=== PATIENT | male | born 2000 | race Caucasian/White ===

== ENCOUNTER 2019-05-13 03:57 | Emergency (ER) | payer OTHER ==
[2019-05-13] MEDS ORDERED: LORazepam 2 MG/ML VIAL ONE ×2 (04:23→04:41)
[2019-05-13] MEDS ORDERED: NA CHLORIDE 0.9% 0 ML ONE (04:24)
[2019-05-13] MEDS ORDERED: NA CHLORIDE 0.9% 1,000 ML ONE (04:24)
[2019-05-13 04:32] LABS: Absolute Lymphocytes (CBC) 3.3 K/uL (0.7-4.9); Basophils % 0.5 % (0-1.3); Hematocrit 51.8 % (39.6-49.0); Lymphocytes % 27.6 % (15.3-44.8); MPV 8.9 fL (7.6-11.3); Monocytes % 11.3 % (3.3-12.3); RBC Red Blood Cell Count 5.84 M/uL (4.33-5.43)
[2019-05-13 04:36] LABS: Protime INR 1.09
[2019-05-13 04:39] LABS: Urine Blood NEGATIVE (NEG); Urine Glucose NEGATIVE (NEG); Urine Protein NEGATIVE (NEG); Urine Specific Gravity 1.015 (1.005-1.030)
[2019-05-13] MEDS ORDERED: Magnesium Sulfate 2gm IVPB 2 G/50 ML BAG IV ONE (04:46)
[2019-05-13 04:47] LABS: Barbiturates NEGATIVE (NEGATIVE); Benzodiazepines NEGATIVE (NEGATIVE); Cocaine NEGATIVE (NEGATIVE); METHAMPHETAM NEGATIVE (NEGATIVE); Methadone NEGATIVE (NEGATIVE); Opiates NEGATIVE (NEGATIVE); Phencyclidine NEGATIVE (NEGATIVE); THC Cannibis POSITIVE (NEGATIVE)
[2019-05-13 04:50] LABS: ALT/SGPT 23 U/L (12-78); AST/SGOT 25 U/L (15-37); Albumin 5.3 g/dL (3.4-5.0); Alkaline Phosphatase 78 U/L (45-117); BUN Blood Urea Nitrogen 12 mg/dL (7-18); Bicarbonate 17 mmol/L (21-32); Bilirubin Total 2.4 mg/dL (0.2-1.0); Glucose Level 103 mg/dL (74-106); Potassium 3.3 mmol/L (3.5-5.1); Protein, Total 9.2 g/dL (6.4-8.2); Sodium Level 146 mmol/L (136-145)
[2019-05-13] MEDS ORDERED: PROPOFOL 1,000 MG/100 ML VIAL IV ONE (05:20)
[2019-05-13] MEDS ORDERED: ROCURONIUM 50 MG/5 ML VIAL IV ONE (05:22)
[2019-05-13] MEDS ORDERED: FENTANYL CITR 100 MCG/2 ML ONE ×2 (05:23→07:01)
[2019-05-13] MEDS ORDERED: ETOMIDATE 20 MG/10 ML VIAL IV ONE (05:23)
--- NOTE | 2019-05-13 05:23 | ER ---
Nurse's Notes [facility] Name: Saqib An Age: 18 yrs Sex: Male : 2000 Arrival Date: 05/13/2019 Time: 03:58 Bed 4 Private MD: Diagnosis: Intentional overdose;Anticholinergic Toxicity - Benadryl;Seizure Presentation: 05/13 04:00 Presenting complaint: Friend states: pt was "joking around" and took too many "sleep bb aides" does not know what they are, pt had seizure during triage lasting approx 10 seconds, O2 applied via NRB at 15 Lpm, Dr Swenson notified and at bedside. Transition of care: patient was not received from another setting of care. Onset of symptoms is unknown. Risk Assessment: Do you want to hurt yourself or someone else? Unable to obtain. Initial Sepsis Screen: Does the patient meet any 2 criteria? No. Patient's initial sepsis screen is negative. Does the patient have a suspected source of infection? No. Patient's initial sepsis screen is negative. Care prior to arrival: None. 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 - Social history:: Smoking status: unknown. - Ebola Screening: : Unable to complete screening because patient is disoriented, . Screenin:49 Abuse screen: Denies threats or abuse. Nutritional screening: No deficits noted. tl2 Tuberculosis screening: No symptoms or risk factors identified. Fall Risk IV access (20 points). Gait- Impaired (20 pts.). Mental Status- Overestimates/Forgets Limitations (15 pts.). Assessment: 03:59 Neuro: Seizure activity noted at this time. Type of seizure: tonic-clonic seizure. ea length of seizure approximately 10 seconds. 04:05 General: Appears in no apparent distress. Behavior is post ictal. Pain: Unable to use ea pain scale. FLACC scale score is 0 out of 10. Neuro: Level of Consciousness is post ictal, Facial symmetry appears normal. Respiratory: Airway is patent Respiratory effort is even, unlabored, Respiratory pattern is symmetrical, tachypnea. Derm: Skin is dry, Skin is pale, Skin temperature is cool. 04:54 Reassessment: Pt is groggy, respirations tachypneic, pt on O2 \\T\\ 2 L per nasal cannula. ea Friends at bedside. 05:04 Reassessment: Poison Control notified spoke to Koko Carrasco with the [place] division bb . 05:05 Reassessment: Dr Swenson at bedside for intubation, Pierre RT and Brien RT at bedside, mallorie Saucedo ED tech at bedside, tam RN and Audelia RN at bedside. RSI meds given see MAR pt intubated with one attempt ETT 7.5, 22 cm at the teeth, color change noted, bilateral breath sounds auscultated, X-ray called for verification of placement. 05:46 Reassessment: Report called to Emerita PEARSON at [facility]. ea 05:49 Reassessment: Pt sedated and intubated, no s/s of pain or discomfort noted at this time.ea 05:56 Reassessment: pt resting quietly, ETT in place, resp assisted, andria breath sounds clear, bb NG tube in place to low intermittent suction, Lewis catheter in place to bedside drain, IV sites intact, patent with fluids infusing no erythema or edema noted. Awaiting EMS for transfer of pt to [facility] for higher level of care. 06:30 Reassessment: Pt resting with eyes closed, ETT in place,respirations assisted, NG tube ea in place to low intermittent suction, Lewis catheter in place to BSD, IV sites intact, patent with fluids infusing, no erythema or edema noted. Awaiting on EMS for transfer to [facility] for Higher level of care. 06:49 Reassessment: Mother at bedside states pt has "temporal lobe seizures" does not take bb any medications, is allergic to tylenol and had ear tubes. 07:04 Reassessment: [facility] at facility for transfer, report given to EMS crew. Pt ea remains sedated. ETT in place, respirations assisted, NG tube in place to low intermittent suction, Lewis catheter in place to BSD, IV site intact, patent with fluids infusing, no erythema or edema noted. Pt taken via stretcher per EMS, no s/s of pain or discomfort noted at this time. Vital Signs: 04:13 BP 162 / 82; Pulse 143; Resp 32 S; Pulse Ox 97% on 15% Non-rebreather mask; Weight 56.7 bb kg (R); Height 5 ft. 8 in. (172.72 cm) (R); 04:34 Temp 98.2(R); ea 04:42 BP 133 / 57; Pulse 126; Resp 22; Pulse Ox 97% on R/A; ea 04:48 BP 133 / 57; Pulse 121; Resp 28; Pulse Ox 98% on 2 lpm NC; tl2 05:00 BP 136 / 7; Pulse 118; Resp 28 S; Temp 98.5(C); Pulse Ox 98% on 2 lpm NC; bb 05:18 BP 152 / 99; Pulse 109; Resp 22; Temp 98.4; Pulse Ox 98% on ETT vent; ea 05:21 BP 134 / 85; Pulse 103; Resp 14 S; Temp 98.3(C); Pulse Ox 98% on 100% FiO2 ETT vent; bb 05:52 BP 144 / 94; Pulse 104; Resp 21 A; Temp 98.2(C); Pulse Ox 98% on 100% FiO2 ETT vent; bb 06:04 BP 140 / 84; Pulse 101; Resp 20; Temp 98.2; Pulse Ox 95% ; ea 06:15 BP 137 / 91; Pulse 102; Resp 18; Pulse Ox 97% on ETT vent; ea 06:45 BP 153 / 98; Pulse 88; Resp 18; Temp 98.3; Pulse Ox 99% on R/A; ea 04:13 Body Mass Index 19.01 (56.70 kg, 172.72 cm) bb ED Course: 03:58 Patient arrived in ED. ds1 03:58 Inserted saline lock: 18 gauge in left antecubital area, using aseptic technique. ea 04:00 Oxygen administration via non-rebreather mask \\T\\ 15L/min. ea 04:03 Juarez Swenson MD is Attending Physician. ps1 04:05 Patient has correct armband on for positive identification. Placed in gown. Bed in low ea position. Call light in reach. Side rails up X2. 04:10 Inserted saline lock: 18 gauge in right antecubital area, using aseptic technique. ea 04:12 Triage completed. bb 04:13 Arm band placed on Patient placed in an exam room, on a stretcher, on court recording monitor, bb on pulse oximetry. 04:40 Lewis cath inserted, using sterile technique, 16 Fr., by vt, balloon inflated, to bb gravity drainage, Patient tolerated well. 04:51 Safety checks: Items removed:. ag4 04:54 Audelia Muniz, RN is Primary Nurse. ea 05:05 Assisted provider with intubation using 7.5 mm ETT via oral route. ET tube secured at bb teeth. Set up intubation tray. Intubated by Juarez Swenson MD Placement verified by CXR, CO2 detector w/ + color change, auscultating bilateral breath sounds, Patient tolerated well. 05:18 NGT: inserted 16 Fr. via right nare. verified placement of air over stomach, verified bb return of gastric contents, Placement verified by X-ray, to intermittent suction. Returned gastric contents. Patient tolerated well. 05:31 XRAY Chest (1 view) In Process Unspecified. EDMS 05:55 Patient transferred, IV remains in place. bb 06:16 Notified ED physician of a critical lab result(s). lactate 2.2 Dr Swenson notified. bb Restraints: 05:18 Non-Violent Restraint: Order obtained. Initiated on May 13, 2019 at 05:18 Unable to ea provide Restraint education. Pt sedated and intubated. Circulation: Within defined parameters (based on Cardiovascular assessment) Skin integrity: Within defined parameters (based on Integumentary assessment) Signs of injury related to restraint: No injuries noted. Restraint status: Soft wrist restraint (Right) Started. Soft wrist restraint (Left) Started. Administered Medications: 04:00 Drug: Ativan 2 mg Route: IVP; Site: left antecubital; ea 04:15 Follow up: Response: No adverse reaction ea 04:10 Drug: Ativan 2 mg Route: IVP; Site: left antecubital; ea 04:15 Follow up: Response: No adverse reaction ea 04:15 Drug: NS 0.9% 1000 ml Route: IV; Rate: 1 bolus; Site: left antecubital; ea 06:12 Follow up: Response: No adverse reaction; IV Status: Completed infusion; IV Intake: ea 1000ml 04:33 CANCELLED (Duplicate Order): NS 0.9% 1000 ml IV at 1 bolus Per protocol; 1000 mL bolus ea 04:33 Drug: Magnesium Sulfate 2 grams Route: IVPB; Infused Over: 2 hrs; Site: left ea antecubital; 04:45 Follow up: IV Status: Completed infusion; IV Intake: 50ml bb 05:28 Follow up: given over 10 minutes per verbal order from Dr Swenson. Order read back and bb verified. 05:10 Drug: Etomidate 20 mg Route: IVP; Site: left antecubital; bb 05:15 Follow up: Response: No adverse reaction ea 05:11 Drug: Rocuronium 50 mg Route: IVP; Site: left antecubital; bb 05:15 Follow up: Response: No adverse reaction ea 05:16 Drug: fentaNYL (PF) 100 mcg {Note: mix in 100 mLs NS 0.9% administer 50 mcg/hr.} Route: bb IVP; Site: left antecubital; 06:50 Follow up: Response: No adverse reaction ea 05:16 Drug: Propofol 5 mcg/kg/min Route: IV; Rate: calculated rate; Site: left antecubital; bb 06:50 Follow up: Response: No adverse reaction; IV Status: Infusion continued upon transfer ea 06:50 Drug: fentaNYL (PF) 100 mcg Route: IVP; Site: right antecubital; ea 07:05 Follow up: Response: No adverse reaction; No adverse reaction, medication continued at ea transfer Intake: 04:45 IV: 50ml; Total: 50ml. bb 06:12 IV: 1000ml; Total: 1050ml. ea Ventilator: 05:21 Fi02: 100%; Rate: 18min; T.V.: 450ml; Peep: 0cm; ET tube: 7.5 mm (Oral); bb Outcome: 05:22 ER care complete, transfer ordered by . ps1 05:49 Instructed on Pt friend verbalized the understanding of need to transfer. ea 07:04 Transferred by ground EMS to [facility], Transfer form completed. ea 07:04 Condition: stable 07:15 Patient left the ED. ea Signatures: Dispatcher [employer] [facility] Bertha Dunaway ds1 Susan Bui RN RN bb Chana Celestin RN RN tl2 Audelia Muniz RN Juarez Patel ea, MD MD ps1 Guzman, Lewis ag4 Corrections: (The following items were deleted from the chart) 04:36 04:08 Inserted saline lock: 18 gauge in left antecubital area, using aseptic technique. ea ea 04:36 04:08 Oxygen administration via non-rebreather mask \\T\\ 15L/min ea ea 05:39 05:16 fentaNYL (PF) 100 mcg IVP in left antecubital bb bb 05:56 04:05 Derm: Skin is diaphoretic, Skin is pale, Skin temperature is cool ea ea 06:47 04:13 Allergies: Unable to obtain; bb bb 06:47 04:13 Home Meds: Unable to obtain; bb bb 06:47 04:13 PMHx: Unable to obtain; bb bb 06:49 04:13 PSHx: Unable to obtain; bb bb
--- NOTE | 2019-05-13 05:23 | EDPHYS ---
Physician Documentation [facility] Name: Saqib An Age: 18 yrs Sex: Male : 2000 Arrival Date: 05/13/2019 Time: 03:58 Bed 4 Private MD: ED Physician Juarez Swenson HPI: 05/13 04:09 This 18 yrs old Male presents to ER via Unassigned with complaints of ps1 Accidental Overdose. 04:09 patient reportedly took multiple sleep aid. Now seizing in ED. No other history. Friend ps1 left to get bottle of pills. . 05:24 reportedly took half of a bottle of 365 caps 25mg benadryl per friend after finding out ps1 his gf was cheating on him with another individual. Went into the bathroom after someone jokingly said to split the bottle and he actually did it. . 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 - Social history:: Smoking status: unknown. - Ebola Screening: : Unable to complete screening because patient is disoriented, . ROS: 04:09 Unable to obtain ROS due to patient seizing and now post ictal. ps1 Exam: 04:09 Head/Face: Normocephalic, atraumatic. ps1 04:09 ENT: Nares patent. No nasal discharge, no septal abnormalities noted. Tympanic membranes are normal and external auditory canals are clear. Oropharynx with no redness, swelling, or masses, exudates, or evidence of obstruction, uvula midline. Mucous membranes moist. Chest/axilla: Normal chest wall appearance and motion. Nontender with no deformity. No lesions are appreciated. 04:09 Eyes: right gaze preference. pinpoint pupils. 04:09 Cardiovascular: Rate: tachycardic, Rhythm: regular, Pulses: no pulse deficits are appreciated. 04:09 Respiratory: sonorous respirations while seizing. 04:09 Abdomen/GI: Inspection: scar(s), are noted in the right upper quadrant, left upper quadrant, right lower quadrant and left lower quadrant, Bowel sounds: normal, Palpation: abdomen is soft and non-tender. 04:12 Neuro: Orientation: unable to test, the patient is post-ictal. ps1 Vital Signs: 04:13 BP 162 / 82; Pulse 143; Resp 32 S; Pulse Ox 97% on 15% Non-rebreather mask; Weight 56.7 bb kg (R); Height 5 ft. 8 in. (172.72 cm) (R); 04:34 Temp 98.2(R); ea 04:42 BP 133 / 57; Pulse 126; Resp 22; Pulse Ox 97% on R/A; ea 04:48 BP 133 / 57; Pulse 121; Resp 28; Pulse Ox 98% on 2 lpm NC; tl2 05:00 BP 136 / 7; Pulse 118; Resp 28 S; Temp 98.5(C); Pulse Ox 98% on 2 lpm NC; bb 05:18 BP 152 / 99; Pulse 109; Resp 22; Temp 98.4; Pulse Ox 98% on ETT vent; ea 05:21 BP 134 / 85; Pulse 103; Resp 14 S; Temp 98.3(C); Pulse Ox 98% on 100% FiO2 ETT vent; bb 05:52 BP 144 / 94; Pulse 104; Resp 21 A; Temp 98.2(C); Pulse Ox 98% on 100% FiO2 ETT vent; bb 06:04 BP 140 / 84; Pulse 101; Resp 20; Temp 98.2; Pulse Ox 95% ; ea 06:15 BP 137 / 91; Pulse 102; Resp 18; Pulse Ox 97% on ETT vent; ea 06:45 BP 153 / 98; Pulse 88; Resp 18; Temp 98.3; Pulse Ox 99% on R/A; ea 04:13 Body Mass Index 19.01 (56.70 kg, 172.72 cm) bb Ventilator: 05:21 Fi02: 100%; Rate: 18min; T.V.: 450ml; Peep: 0cm; ET tube: 7.5 mm (Oral); bb Procedures: 05:15 Intubation: Ventilated with 100% NRB prior to procedure. Intubated orally using # 4 ps1 Mariela blade with 7.5 mm ETT. was successful on first attempt. Ventilated with ventilator. Tube secured with ETT starkey at right side of mouth measured 22 cm at lip. Placement verified by CXR, CO2 detector with (+) color change, auscultating bilateral breath sounds, O2 saturation after procedure was 100 %. Patient tolerated well. MDM: 04:53 Patient medically screened. ps1 05:15 ED course: pt HR 170's seizing, BP 170's systolic. Altered and post ictal. Dry. Appears ps1 to be anticholinergic toxicity. AVR R' notching on EKG. QRS normal. QTc prolonged over 578, gave 2g Mag sulfate. 4mg ativan 2/2 seizure. Pt intubated for airway protection for transfer. 20 etomidate 50 rocuronium 7.5 ETT 22 \T\lips. Post intubation sedation with fentanyl 50 mcg/hr Propofol \T\ 5. Transport stable on vent. AC 450 TV, 0 PEEP. Rate 18. Poison control . 05:23 Data reviewed: vital signs, nurses notes, lab test result(s), EKG, radiologic studies. ps1 05/13 04:09 Order name: Acetaminophen; Complete Time: 04:54 ps1 05/13 04:09 Order name: CBC with Diff; Complete Time: 04:54 ps1 05/13 04:09 Order name: ETOH Level; Complete Time: 04:54 ps1 05/13 04:09 Order name: PT-INR; Complete Time: 04:54 ps1 05/13 04:09 Order name: Salicylate; Complete Time: 04:54 ps1 05/13 04:09 Order name: Urine Drug Screen; Complete Time: 04:54 ps1 05/13 04:09 Order name: CMP; Complete Time: 04:54 ps1 05/13 04:32 Order name: Urine Dipstick--Ancillary (enter results); Complete Time: 04:54 ar5 05/13 04:49 Order name: Lactate; Complete Time: 06:17 ps1 05/13 04:49 Order name: ABG; Complete Time: 05:30 ps1 05/13 05:28 Order name: XRAY Chest (1 view) bb 05/13 04:09 Order name: EKG; Complete Time: 04:10 ps1 05/13 04:09 Order name: EKG - Nurse/Tech; Complete Time: 04:31 ps1 05/13 04:09 Order name: IV Saline Lock; Complete Time: 04:20 ps1 05/13 04:09 Order name: Labs collected and sent; Complete Time: 04:20 ps1 05/13 04:09 Order name: Urine Dipstick-Ancillary (obtain specimen); Complete Time: 04:31 ps1 05/13 06:12 Order name: Restraint:Non-Violent; Complete Time: 06:12 ea Administered Medications: 04:00 Drug: Ativan 2 mg Route: IVP; Site: left antecubital; ea 04:15 Follow up: Response: No adverse reaction ea 04:10 Drug: Ativan 2 mg Route: IVP; Site: left antecubital; ea 04:15 Follow up: Response: No adverse reaction ea 04:15 Drug: NS 0.9% 1000 ml Route: IV; Rate: 1 bolus; Site: left antecubital; ea 06:12 Follow up: Response: No adverse reaction; IV Status: Completed infusion; IV Intake: ea 1000ml 04:33 CANCELLED (Duplicate Order): NS 0.9% 1000 ml IV at 1 bolus Per protocol; 1000 mL bolus ea 04:33 Drug: Magnesium Sulfate 2 grams Route: IVPB; Infused Over: 2 hrs; Site: left ea antecubital; 04:45 Follow up: IV Status: Completed infusion; IV Intake: 50ml bb 05:28 Follow up: given over 10 minutes per verbal order from Dr Swenson. Order read back and bb verified. 05:10 Drug: Etomidate 20 mg Route: IVP; Site: left antecubital; bb 05:15 Follow up: Response: No adverse reaction ea 05:11 Drug: Rocuronium 50 mg Route: IVP; Site: left antecubital; bb 05:15 Follow up: Response: No adverse reaction ea 05:16 Drug: fentaNYL (PF) 100 mcg {Note: mix in 100 mLs NS 0.9% administer 50 mcg/hr.} Route: bb IVP; Site: left antecubital; 06:50 Follow up: Response: No adverse reaction ea 05:16 Drug: Propofol 5 mcg/kg/min Route: IV; Rate: calculated rate; Site: left antecubital; bb 06:50 Follow up: Response: No adverse reaction; IV Status: Infusion continued upon transfer ea 06:50 Drug: fentaNYL (PF) 100 mcg Route: IVP; Site: right antecubital; ea 07:05 Follow up: Response: No adverse reaction; No adverse reaction, medication continued at ea transfer Disposition: 05:26 Chart complete. ps1 Disposition: 07/16/19 05:22 Transfer ordered to [facility]. Diagnosis are Intentional overdose, Anticholinergic Toxicity - Benadryl, Seizure. - Reason for transfer: Higher level of care. - Accepting physician is barbara. - Condition is Critical. - Problem is new. - Symptoms have improved. Critical care time excluding procedures: 05:15 Critical care time: Bedside Care: 45 minutes, Consultation: 10 minutes. Total time: 55 ps1 minutes Signatures: Dispatcher [employer] EDMS uSsan Bui RN RN bb Knox, Taylor, RN RN tl2 Audelia Muniz RN RN ea Singer, Phillip, MD MD ps1 Corrections: (The following items were deleted from the chart) 04:33 04:31 NS 0.9% 1000 ml IV at 1 bolus Per protocol; 1000 mL bolus ordered. tl2 jackie 05:26 04:09 patient reportedly took multiple sleep aid. Now seizing in ED. No other history. ps1 Friend left to get bottle of pills. . ps1 05:59 05:15 ED course: pt HR 170's seizing, BP 170's systolic. Altered and post ictal. Dry. ps1 Appears to be anticholinergic toxicity. AVR R' notching on EKG. QRS normal. QTc prolonged over 578, gave 2g Mag sulfate. 4mg ativan 2/2 seizure. Pt intubated for airway protection for transfer. 20 etomidate 50 rocuronium 7.5 ETT 22 \T\lips. Post intubation sedation with fentanyl 50 mcg/hr Propofol \T\ 5. Transport stable on vent. AC 450 TV, 0 PEEP. Rate 14. . ps1 06:47 04:13 Allergies: Unable to obtain; bb bb 06:47 04:13 Home Meds: Unable to obtain; bb bb 06:47 04:13 PMHx: Unable to obtain; bb bb 06:49 04:13 PSHx: Unable to obtain; bb bb 07:15 05:22 05/13/2019 05:22 Transfer ordered to [facility]. Diagnosis is ea Intentional overdose; Anticholinergic Toxicity - Benadryl; Seizure. Reason for transfer: Higher level of care. Accepting physician is barbara. Condition is Critical. Problem is new. Symptoms have improved. ps1
[2019-05-13] MEDS ORDERED: NA CHLORIDE 0.9% 100 ML IV ONE ×2 (05:27→07:02)
[2019-05-13 05:28] LABS: Blood O2 Saturation 86.4 % (92-98.5)
--- NOTE | 2019-05-13 08:03 | RAD REPORT ---
EXAM DESCRIPTION: RAD - Chest Single View - 05/13/2019 5:35 am CLINICAL HISTORY: Overdose, intubation COMPARISON: None. TECHNIQUE: AP portable chest image was obtained 0530 hours . FINDINGS: Endotracheal tube is in place. Tip is at the T3-4 level 1 centimeter above the aortic arch . This is several cm above the annette. NG tube is in place. Tip is in the proximal stomach. Side port is near the GE junction. Lung ames are clear. Trachea is midline. Heart and vasculature are normal. No measurable pleural ef fusion and no pneumothorax. No acute bony abnormality seen. No acute aortic findings suspected. IMPRESSION: ET tube and NG tube in good position. No acute cardiopulmonary finding.
--- NOTE | 2019-05-13 11:09 | EKG ---
Test Date: 2019-05-13 Test Time: 04:27:41 Performance Improvement Director: LAMONT MEASUREMENT RESULTS: Intervals: Rate: 138 AK: 96 QRSD: 96 QT: 382 QTc: 578 [place]: P: 36 AK: 96 QRS: 65 T: 47 INTERPRETIVE STATEMENTS: Sinus tachycardia with short AK Otherwise normal ECG No previous ECG available for comparison Electronically Signed On 05-13-19 11:07:21 CDT by Bruce Hawkins
== END 2019-05-13 07:15 | disposition short-term general hospital (02) ==
LOC: ER 03:57
PROC: 0BH17EZ Insertion of Endotracheal Airway into Trachea, Via Natural or Artificial Opening (ICD-10-PCS; principal; 2019-05-13)
DX: T45.0X2A Poisoning by antiallergic and antiemetic drugs, intentional self-harm, initial encounter (principal); R56.9 Unspecified convulsions
CPT/HCPCS: 31500; 36415; 51702; 71045; 80053; 80307; 80320; 80329; 81003; 82805; 83605; 85025; 85610; 93005; 94002; 99291; J2704; J3010; J3475; J7030

== ENCOUNTER 2019-08-10 14:41 | Emergency (ER) | payer OTHER ==
[2019-08-10] MEDS ORDERED: dexAMETHasone 4 MG TAB ONE (16:18)
--- NOTE | 2019-08-10 16:18 | EDPHYS ---
Physician Documentation [facility] Name: Saqib An Age: 19 yrs Sex: Male : 2000 Arrival Date: 08/10/2019 Time: 14:44 Bed 11 Private MD: ED Physician James Dominguez Historical: - Allergies: 08/10 14:51 Amoxicillin; iw - Home Meds: 14:51 None [Active]; iw - PMHx: 14:51 Temporal lobe seizures; as a child; iw - PSHx: 14:51 Ear Tubes; iw - Immunization history:: Adult Immunizations not up to date. - Social history:: Smoking status: Patient uses tobacco products, denies chronic smoking, but will smoke occasionally. - Ebola Screening: : Patient negative for fever greater than or equal to 101.5 degrees Fahrenheit, and additional compatible Ebola Virus Disease symptoms Patient denies exposure to infectious person Patient denies travel to an Ebola-affected area in the 21 days before illness onset No symptoms or risks identified at this time. Vital Signs: 14:51 BP 151 / 82; Pulse 83; Resp 16; Temp 98.2; Pulse Ox 97% on R/A; Weight 63.5 kg; Height iw 5 ft. 8 in. (172.72 cm); Pain 0/10; 14:51 Body Mass Index 21.29 (63.50 kg, 172.72 cm) iw MDM: 15:20 Patient medically screened. snw 08/10 15:20 Order name: Flu; Complete Time: 16:11 snw 08/10 15:20 Order name: Strep; Complete Time: 16:11 snw 08/10 16:00 Order name: Throat Culture EDMS Administered Medications: 16:25 Drug: Decadron 8 mg Route: PO; iw 17:00 Follow up: Response: No adverse reaction iw Disposition: 08/10/19 16:18 Discharged to Home. Impression: Acute upper respiratory infection, unspecified. - Condition is Stable. - Discharge Instructions: Upper Respiratory Infection, Adult, Viral Respiratory Infection, Rehydration, Adult. - Prescriptions for Zyrtec 10 mg Oral Tablet - take 1 tablet by ORAL route once daily As needed; 20 tablet. - Medication Reconciliation Form, Thank You Letter, Antibiotic Education, Prescription Opioid Use, Work release form form. - Follow up: Private Physician; When: 2 - 3 days; Reason: Recheck today's complaints, Continuance of care, Re-evaluation by your physician. Follow up: Emergency Department; When: As needed; Reason: Worsening of condition. Signatures: Dispatcher [employer] EDSvetlana Hester, JAMESC BACK TENDER CYLINDER-[facility] Magy Doss RN RN iw Corrections: (The following items were deleted from the chart) 16:25 16:18 08/10/2019 16:18 Discharged to Home. Impression: Acute upper respiratory iw infection, unspecified. Condition is Stable. Forms are Medication Reconciliation Form, Thank You Letter, Antibiotic Education, Prescription Opioid Use. Follow up: Private Physician; When: 2 - 3 days; Reason: Recheck today's complaints, Continuance of care, Re-evaluation by your physician. Follow up: Emergency Department; When: As needed; Reason: Worsening of condition. snw
--- NOTE | 2019-08-10 16:18 | ER ---
Nurse's Notes [facility] Name: Saqib An Age: 19 yrs Sex: Male : 2000 Arrival Date: 08/10/2019 Time: 14:44 Bed 11 Private MD: Diagnosis: Acute upper respiratory infection, unspecified Presentation: 08/10 14:48 Presenting complaint: Patient states: cough for a few days, intermittent sore throat, iw sinus congestion, no fever. Transition of care: patient was not received from another setting of care. Onset of symptoms was August 08, 2019. Risk Assessment: Do you want to hurt yourself or someone else? Patient reports no desire to harm self or others. Initial Sepsis Screen: Does the patient meet any 2 criteria? No. Patient's initial sepsis screen is negative. Does the patient have a suspected source of infection? No. Patient's initial sepsis screen is negative. Care prior to arrival: None. 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 - Social history:: Smoking status: Patient uses tobacco products, denies chronic smoking, but will smoke occasionally. - Ebola Screening: : Patient negative for fever greater than or equal to 101.5 degrees Fahrenheit, and additional compatible Ebola Virus Disease symptoms Patient denies exposure to infectious person Patient denies travel to an Ebola-affected area in the 21 days before illness onset No symptoms or risks identified at this time. Screenin:54 Abuse screen: Denies threats or abuse. Denies injuries from another. Nutritional iw screening: No deficits noted. Tuberculosis screening: No symptoms or risk factors identified. Fall Risk None identified. Assessment: 14:53 General: Appears in no apparent distress. Behavior is calm, cooperative. General: iw Denies fever. Pain: Denies pain. Neuro: Level of Consciousness is awake, alert, obeys commands, Oriented to person, place, time, situation, Moves all extremities. Full function. Cardiovascular: Patient's skin is warm and dry. Respiratory: Reports cough that is non-productive, Respiratory effort is even, unlabored, Respiratory pattern is regular, symmetrical, Breath sounds are clear bilaterally. GI: Abdomen is flat, non-distended. Derm: Skin is intact, is healthy with good turgor. Musculoskeletal: Range of motion: intact in all extremities. Vital Signs: 14:51 BP 151 / 82; Pulse 83; Resp 16; Temp 98.2; Pulse Ox 97% on R/A; Weight 63.5 kg; Height iw 5 ft. 8 in. (172.72 cm); Pain 0/10; 14:51 Body Mass Index 21.29 (63.50 kg, 172.72 cm) iw ED Course: 14:44 Patient arrived in ED. mr 14:46 [facility]vet[facility] Finney [facility]C [facility]. snw 14:46 Jaems Dominguez MD is Attending Physician. snw 14:50 Triage completed. iw 14:51 Arm band placed on. iw 14:52 Magy Doss RN is Primary Nurse. iw 14:53 Patient has correct armband on for positive identification. iw 15:06 No provider procedures requiring assistance completed. Patient did not have IV access iw during this emergency room visit. 15:29 Flu and/or RSV swab sent to lab. Strep swab sent to lab. lt1 15:29 Strep Sent. lt1 15:29 Flu Sent. lt1 Administered Medications: 16:25 Drug: Decadron 8 mg Route: PO; iw 17:00 Follow up: Response: No adverse reaction iw Outcome: 16:18 Discharge ordered by MD. snw 16:24 Discharged to home ambulatory. iw 16:24 Condition: good 16:24 Discharge instructions given to patient, Instructed on discharge instructions, follow up and referral plans. medication usage, Demonstrated understanding of instructions, follow-up care, medications, Prescriptions given X 1. 16:25 Patient left the ED. iw Signatures: Svetlana Finney FNP-C FNP-Jewel LovellaPeggy Magy Doss, MICHEL RN iw Wilma Guzman lt1
[2019-08-10 16:31] VITALS: BP 151/82; TEMP 98.2; O2SAT 97
== END 2019-08-10 16:25 | disposition home or self-care (01) ==
LOC: ER 14:41
DX: J06.9 Acute upper respiratory infection, unspecified (principal); Z88.1 Allergy status to other antibiotic agents; Z72.0 Tobacco use
CPT/HCPCS: 87070; 87081; 87804 ×2; 99283; J8540

== ENCOUNTER 2019-12-21 16:25 | Emergency (ER) | payer OTHER ==
--- OUTSIDE RECORDS SUMMARY | 2019-12-21 16:28 | XMS REPORT ---
:2000 [facility] Address [address] [place] [address] Care Team Providers Name Role Phone MISAEL MERIDA Unavailable Unavailable Problems This patient has no known problems. Allergies, Adverse Reactions, Alerts This patient has no known allergies or adverse reactions. Medications This patient has no known medications. Results Test Description Test Time Test Comments Text Results Atomic Results Result Comments SPUTUM CULTURE + GRAM STAIN 2019-10-14 14:03:00 Test Item Value Reference Range Comments CULTURE (BEAKER) (test STAPHYLOCOCCUS AUREUS 4+ Staphylococcus aureus plgl=2570) Clindamycin (test code=10) Erythromycin (test code=4) Linezolid (test code=40) Nitrofurantoin (test code=23) Oxacillin (test code=14) Rifampin (test code=43) Tetracycline (test code=2) Trimethoprim + Sulfamethoxazole (test code=47) Vancomycin (test code=13) GRAM STAIN RESULT (BEAKER) 1+ White blood cells seen (test aicq=4723) GRAM STAIN RESULT (BEAKER) 0-5 epithelial cells (test wkhh=[id number]) GRAM STAIN RESULT (BEAKER) 3+ gram positive cocci in (test jknl=237336) chains and pairs 4+ Normal respiratory gabrielle presentPOCT-GLUCOSE [id number] 11:34:00 Test Item Value Reference Range Comments POC-GLUCOSE METER (BEAKER) 93 mg/dL 70-110 TESTED AT [facility] [address] [facility] (test lkwb=9422) [facility] [address] POCT-GLUCOSE [id number] 18:22:00 Test Item Value Reference Range Comments POC-GLUCOSE METER (BEAKER) 82 mg/dL 70-110 TESTED AT [facility] [address] [facility] (test rytg=9505) [facility] [address] B-TYPE NATRIURETIC FACTOR (BNP)2019-05-13 13:29:00 Test Item Value Reference Range Comments B-TYPE NATRIURETIC PEPTIDE (BEAKER) (test fsch=429) < pg/mL 0-100 POCT-GLUCOSE [id number] 11:56:00 Test Item Value Reference Range Comments POC-GLUCOSE METER (BEAKER) 77 mg/dL 70-110 TESTED AT [facility] [address] (test wnrq=1700) [place] [address] [id number] 11:55:00 Test Item Value Reference Range Comments MAGNESIUM (BEAKER) (test 2.3 mg/dL 1.6-2.6 Specimen slightly hemolyzed hjee=607) [id number] 11:55:00 Test Item Value Reference Range Comments PHOSPHORUS (BEAKER) (test 3.8 mg/dL 2.3-4.7 Specimen slightly hemolyzed yvcu=991) COMPREHENSIVE METABOLIC [id number] 11:55:00 Test Item Value Reference Range Comments TOTAL PROTEIN (BEAKER) 6.9 gm/dL 6.0-8.3 Specimen slightly (test siqe=704) hemolyzed ALBUMIN (BEAKER) (test 4.2 g/dL 3.5-5.0 Specimen slightly bxmb=7464) hemolyzed ALKALINE PHOSPHATASE 58 U/L 40-150 (BEAKER) (test hcdc=534) BILIRUBIN TOTAL (BEAKER) 2.5 mg/dL 0.2-1.2 Specimen slightly (test bima=634) hemolyzed SODIUM (BEAKER) (test 138 meq/L 136-145 vkqi=464) POTASSIUM (BEAKER) (test 4.0 meq/L 3.5-5.1 Specimen slightly kfdz=686) hemolyzed CHLORIDE (BEAKER) (test 107 meq/L 98-107 lbyt=612) CO2 (BEAKER) (test 23 meq/L 22-29 owpn=075) BLOOD UREA NITROGEN 10 mg/dL 7-21 (BEAKER) (test hpik=606) CREATININE (BEAKER) (test 0.96 mg/dL 0.57-1.25 Specimen slightly vzlc=959) hemolyzed GLUCOSE RANDOM (BEAKER) 80 mg/dL 70-105 (test jsie=928) CALCIUM (BEAKER) (test 9.2 mg/dL 8.4-10.2 zzkr=284) AST (SGOT) (BEAKER) (test 23 U/L 5-34 Specimen slightly qopf=844) hemolyzed ALT (SGPT) (BEAKER) (test 14 U/L 6-55 Specimen slightly qmlg=707) hemolyzed EGFR (BEAKER) (test 101 mL/min/1.73 sq ESTIMATED GFR IS NOT tqlg=4472) m ACCURATE CREATININE CLEARANCE IN PREDICTING GLOMERULAR FILTRATION RATE. ESTIMATED GFR IS NOT APPLICABLE FOR DIALYSIS PATIENTS. Specimen slightly ictericCBC W/PLT COUNT & AUTO [id number] 11:38 :00 Test Item Value Reference Range Comments WHITE BLOOD CELL COUNT (BEAKER) (test gnon=770) 13.8 K/ L 3.5-10.5 RED BLOOD CELL COUNT (BEAKER) (test kysy=919) 4.73 M/ L 4.63-6.08 HEMOGLOBIN (BEAKER) (test mssd=539) 13.0 GM/DL 13.7-17.5 HEMATOCRIT (BEAKER) (test shmy=596) 41.1 % 40.1-51.0 MEAN CORPUSCULAR VOLUME (BEAKER) (test terl=462) 86.9 fL 79.0-92.2 MEAN CORPUSCULAR HEMOGLOBIN (BEAKER) (test 27.5 pg 25.7-32.2 qkkh=151) MEAN CORPUSCULAR HEMOGLOBIN CONC (BEAKER) (test 31.6 GM/DL 32.3-36.5 elkx=847) RED CELL DISTRIBUTION WIDTH (BEAKER) (test 14.4 % 11.6-14.4 uqgz=627) PLATELET COUNT (BEAKER) (test epcr=661) 217 K/CU MM 150-450 MEAN PLATELET VOLUME (BEAKER) (test hjid=869) 9.7 fL 9.4-12.4 NUCLEATED RED BLOOD CELLS (BEAKER) (test 0 /100 WBC 0-0 vasp=732) NEUTROPHILS RELATIVE PERCENT (BEAKER) (test 73 % bqev=489) LYMPHOCYTES RELATIVE PERCENT (BEAKER) (test 14 % ftuw=710) MONOCYTES RELATIVE PERCENT (BEAKER) (test 11 % dquq=532) EOSINOPHILS RELATIVE PERCENT (BEAKER) (test 2 % vjjr=170) BASOPHILS RELATIVE PERCENT (BEAKER) (test 0 % vjdo=608) NEUTROPHILS ABSOLUTE COUNT (BEAKER) (test 10.06 K/ L 1.78-5.38 taqz=302) LYMPHOCYTES ABSOLUTE COUNT (BEAKER) (test 1.97 K/ L 1.32-3.57 vktr=397) MONOCYTES ABSOLUTE COUNT (BEAKER) (test 1.47 K/ L 0.30-0.82 vmgh=920) EOSINOPHILS ABSOLUTE COUNT (BEAKER) (test 0.20 K/ L 0.04-0.54 gsub=443) BASOPHILS ABSOLUTE COUNT (BEAKER) (test 0.05 K/ L 0.01-0.08 fysv=617) IMMATURE GRANULOCYTES-RELATIVE PERCENT (BEAKER) 0 % 0-1 (test ciwl=0141) CREATININE, RANDOM [id number] 10:00:00 Test Item Value Reference Range Comments CREATININE URINE (BEAKER) (test cwey=994) 215.2 mg/dL Reference Range: No NormalsCHLORIDE, RANDOM [id number] 09:57:00 Test Item Value Reference Range Comments CHLORIDE URINE (BEAKER) (test kwol=970) 126 meq/L Reference Range: No NormalsPROTEIN, RANDOM [id number] 09:57:00 Test Item Value Reference Range Comments PROTEIN, URINE (BEAKER) (test qfdp=6317) 14 mg/dL 0-14 SODIUM, RANDOM [id number] 09:57:00 Test Item Value Reference Range Comments SODIUM URINE (BEAKER) (test xqvq=989) 150 meq/L Reference Range: No NormalsRAD, CHEST, 1 VIEW, NON [id number] 09:35: 00Reason for exam:->hypoxemiaShould this be performed at the bedside?-> YesFINAL REPORT Chest one view. Clinical history: hypoxemia Comparison: No priors Discussion: A frontal chest is provided. Cardiomediastinal contours are normal. ET is 5.5 cm above the annette. A feeding tube projects below the diaphragm. There is no consolidation, pulmonary edema, pneumothorax, or significant effusion. Osseous structures appear intact. Signed: Tammy Woodruff MDReportVerified Date/Time: 05/13/2019 09:35:14 Reading Location: [facility] Radiology Reading Room
[2019-12-21] MEDS ORDERED: DERMABOND SKIN ADHESIVE TOP ONE (18:03)
[2019-12-21] MEDS ORDERED: BUPIVACAINE 0.5% PF 10 ML VIAL ONE (18:03)
--- NOTE | 2019-12-22 00:37 | ER ---
Nurse's Notes [facility] Name: Saqib An Age: 19 yrs Sex: Male : 2000 Arrival Date: 12/21/2019 Time: 16:41 Bed 16 Private MD: Diagnosis: Forearm Laceration Presentation: 12/21 16:57 Presenting complaint: Patient states: I was cutting myself and accidentally went to 4 deep. I am not trying to kill myself. I just do this to relieve stress. Transition of care: patient was not received from another setting of care. Onset of symptoms was December 21, 2019. Risk Assessment: Do you want to hurt yourself or someone else? Patient reports no desire to harm self or others. Initial Sepsis Screen: Does the patient meet any 2 criteria? No. Patient's initial sepsis screen is negative. Does the patient have a suspected source of infection? No. Patient's initial sepsis screen is negative. Care prior to arrival: None. 16:57 Method Of Arrival: EMS [facility] 16:57 Acuity: SIERRA 3 ls4 Triage Assessment: 16:41 General: Appears in no apparent distress. Behavior is calm, cooperative, restless. ls4 Pain: Complains of pain in dorsal aspect of left forearm Pain currently is 0 out of 10 on a pain scale. Musculoskeletal: No deficits noted. Injury Description: Laceration. Historical: - Allergies: 17:00 Amoxicillin; ls4 - Home Meds: 17:00 Seroquel Oral [Active]; ls4 - PMHx: 17:00 Temporal lobe seizures; as a child; ls4 - PSHx: 17:00 Ear Tubes; ls4 - Immunization history:: Adult Immunizations up to date, Last tetanus immunization: up to date. - Coronavirus screen:: The patient has NOT traveled to [place] in the past 14 days. Proceed with normal triage process as indicated. - Social history:: Smoking status: Patient denies any tobacco usage or history of. Patient uses alcohol, on a daily basis. - Ebola Screening: : Patient negative for fever greater than or equal to 101.5 degrees Fahrenheit, and additional compatible Ebola Virus Disease symptoms Patient denies exposure to infectious person Patient denies travel to an Ebola-affected area in the 21 days before illness onset No symptoms or risks identified at this time. Screenin:15 Abuse screen: Denies threats or abuse. Nutritional screening: No deficits noted. vc Tuberculosis screening: No symptoms or risk factors identified. Fall Risk None identified. Assessment: 17:30 Reassessment: No changes from previously documented assessment. General: Appears in no vc apparent distress. comfortable, Behavior is calm, cooperative, appropriate for age. Pain: Denies pain. Neuro: Level of Consciousness is awake, alert, obeys commands, Oriented to person, place, time, situation. Cardiovascular: Patient's skin is warm and dry. Respiratory: Airway is patent Respiratory effort is even, unlabored, Respiratory pattern is regular, symmetrical. GI: No signs and/or symptoms were reported involving the gastrointestinal system. : No signs and/or symptoms were reported regarding the genitourinary system. EENT: No signs and/or symptoms were reported regarding the EENT system. Derm: No signs and/or symptoms reported regarding the dermatologic system. Wound noted dorsal aspect of left forearm. Musculoskeletal: Circulation, motion, and sensation intact. Range of motion: intact in all extremities. 18:30 Reassessment: Patient and/or family updated on plan of care and expected duration. Pain vc level reassessed. Patient is alert, oriented x 3, equal unlabored respirations, skin warm/dry/pink. Patient denies pain at this time. 19:00 Reassessment: Patient states he is tired and feels like his sugar is low, snack vc provided. 20:00 Reassessment: Patient and/or family updated on plan of care and expected duration. Pain vc level reassessed. Patient is alert, oriented x 3, equal unlabored respirations, skin warm/dry/pink. Patient denies pain at this time. Vital Signs: 17:07 BP 116 / 66; Pulse 95; Resp 16; Temp 98.6(O); Pulse Ox 99% on R/A; vc 18:30 BP 126 / 78; Pulse 101; Resp 18; Pulse Ox 97% on R/A; vc 19:30 BP 129 / 72; Pulse 99; Resp 15; Pulse Ox 100% on R/A; vc 20:00 BP 118 / 54; Pulse 98; Resp 15; Pulse Ox 100% on R/A; vc ED Course: 16:41 Patient arrived in ED. vc 16:41 Jorge Gordon PA is PHCP. jmm 16:41 Emiliano Albright MD is Attending Physician. [facility] 16:41 Grace Carrizales, RN is Primary Nurse. vc 16:59 Triage completed. ls4 17:30 Arm band placed on. vc 17:30 Patient has correct armband on for positive identification. Placed in gown. Call light vc in reach. Side rails up X 1. 19:21 Assist provider with laceration repair on dorsal aspect of left forearm using vc Dermabond. Set up tray. Performed by Jorge BUSH Patient tolerated well. Patient did not have IV access during this emergency room visit. Administered Medications: 19:18 Drug: Marcaine (0.5 %) 20 ml Volume: 10 ml; Route: Infiltration; vc Outcome: 20:17 Discharge ordered by MD. [facility] 20:18 Condition: good vc 20:45 Patient left the ED. vc 20:45 Discharge instructions given to patient, Instructed on discharge instructions, follow vc up and referral plans. medication usage, wound care, Demonstrated understanding of instructions, follow-up care, medications, wound care, Prescriptions given X 1. 20:45 Discharged to home ambulatory, with family. vc Signatures: Jorge Gordon PA PA jmm Stewart, Lisa, RN RN ls4 Grace Carrizales, RN RN vc
--- NOTE | 2019-12-22 00:37 | EDPHYS ---
Physician Documentation [facility] Name: Saqib An Age: 19 yrs Sex: Male : 2000 Arrival Date: 12/21/2019 Time: 16:41 Bed 16 Private MD: ED Physician Emiliano Albright HPI: 12/21 16:56 This 19 yrs old Male presents to ER via EMS with complaints of Arm Injury. jmm 16:56 The patient or guardian complains of injury, pain. Onset: The symptoms/episode jmm began/occurred acutely, just prior to arrival. This is a 19 year old male that presents to the ED with multiple lacerations to his left arm. Patient denies suicidal ideation. Patient states he has a need to cut himself when his psychiatric medications need to be changed. Patient states he has a follow up with his psychiatrist tomorrow. . Historical: - Allergies: 17:00 Amoxicillin; ls4 - Home Meds: 17:00 Seroquel Oral [Active]; ls4 - PMHx: 17:00 Temporal lobe seizures; as a child; ls4 - PSHx: 17:00 Ear Tubes; ls4 - Immunization history:: Adult Immunizations up to date, Last tetanus immunization: up to date. - Coronavirus screen:: The patient has NOT traveled to [place] in the past 14 days. Proceed with normal triage process as indicated. - Social history:: Smoking status: Patient denies any tobacco usage or history of. Patient uses alcohol, on a daily basis. - Ebola Screening: : Patient negative for fever greater than or equal to 101.5 degrees Fahrenheit, and additional compatible Ebola Virus Disease symptoms Patient denies exposure to infectious person Patient denies travel to an Ebola-affected area in the 21 days before illness onset No symptoms or risks identified at this time. ROS: 16:56 Constitutional: Negative for fever, chills, and weight loss, Cardiovascular: Negative jmm for chest pain, palpitations, and edema, Respiratory: Negative for shortness of breath, cough, wheezing, and pleuritic chest pain. 16:56 MS/extremity: Positive for injury or acute deformity, laceration. 16:56 Skin: Positive for laceration(s). 16:56 All other systems are negative. Exam: 16:56 Constitutional: This is a well developed, well nourished patient who is awake, alert, jmm and in no acute distress. Head/Face: atraumatic. Eyes: EOMI, no conjunctival erythema appreciated ENT: Moist Mucus Membranes Neck: Trachea midline, Supple Chest/axilla: Normal chest wall appearance and motion. Cardiovascular: Regular rate and rhythm. No edema appreciated Respiratory: Normal respirations, no respiratory distress appreciated Abdomen/GI: Non distended, soft Back: Normal ROM 16:56 Skin: multiple lacerations noted to the left forearm, no active bleeding appreciated. 16:56 Neuro: Orientation: is normal, Mentation: is normal, Memory: is normal. 16:56 Psych: Behavior/mood is pleasant, cooperative. Vital Signs: 17:07 BP 116 / 66; Pulse 95; Resp 16; Temp 98.6(O); Pulse Ox 99% on R/A; vc 18:30 BP 126 / 78; Pulse 101; Resp 18; Pulse Ox 97% on R/A; vc 19:30 BP 129 / 72; Pulse 99; Resp 15; Pulse Ox 100% on R/A; vc 20:00 BP 118 / 54; Pulse 98; Resp 15; Pulse Ox 100% on R/A; vc Laceration: 19:15 Wound Repair of 3cm ( 1.2in ) subcutaneous laceration to left arm. Distal jmm neuro/vascular/tendon intact. Anesthesia: Local anesthetic administered with 2 mls of 0.5% marcaine. Wound prep: Extensive cleansing with hibiclenz by me. Skin closed with 5 4-0 Prolene using simple sutures and sterile technique. Patient tolerated well. 19:15 Wound Repair of 1.5cm ( 0.6in ) laceration to left arm. Anesthesia: Local anesthetic jmm administered with 1 mls of 0.5% marcaine. Wound prep: Moderate cleansing with hibiclenz by me. Skin closed with 2 4-0 Prolene using simple sutures and sterile technique. Patient tolerated well. 19:15 Wound Repair of 1cm ( 0.4in ) laceration to left arm. Distal neuro/vascular/tendon jmm intact. Anesthesia: Local anesthetic administered with 1 mls of 0.5% marcaine. Wound prep: Moderate cleansing with hibiclenz by me. Skin closed with 2 4-0 Prolene using simple sutures and sterile technique. Patient tolerated well. 19:15 Wound Repair of 2cm ( 0.8in ) subcutaneous laceration to left arm. Linear shaped.. jmm Distal neuro/vascular/tendon intact. Anesthesia: Local anesthetic administered with 1 mls of 0.5% marcaine. Wound prep: Moderate cleansing with hibiclenz by me. Skin closed with 3 4-0 Prolene using simple sutures and sterile technique. Patient tolerated well. 19:15 Wound Repair of 2.5cm ( 1.0in ) subcutaneous laceration to left arm. Linear shaped.. jmm Distal neuro/vascular/tendon intact. Anesthesia: Local anesthetic administered with 2 mls of 0.5% marcaine. Wound prep: Moderate cleansing with hibiclenz by me. Skin closed with 5 4-0 Prolene using simple sutures and sterile technique. Patient tolerated well. 19:15 Wound Repair of 3cm ( 1.2in ) avulsed laceration to left arm. Linear shaped.. Distal jmm neuro/vascular/tendon intact. Anesthesia: Local anesthetic administered with 2 mls of 0.5% marcaine. Wound prep: Moderate cleansing with hibiclenz by me. Skin closed with 5 4-0 Prolene using simple sutures and sterile technique. Patient tolerated well. 19:15 Wound Repair of 2cm ( 0.8in ) subcutaneous laceration to left arm. Distal jmm neuro/vascular/tendon intact. Anesthesia: Local anesthetic administered with 1% lidocaine. Wound prep: Moderate cleansing with hibiclenz by me. Skin closed with 1-0 Adhesive skin closure using Dermabond. Patient tolerated well. MDM: 16:56 Patient medically screened. [facility] 20:15 Data reviewed: vital signs, nurses notes. Counseling: I had a detailed discussion with maximo the patient and/or guardian regarding: the historical points, exam findings, and any diagnostic results supporting the discharge/admit diagnosis, the need for outpatient follow up, to return to the emergency department if symptoms worsen or persist or if there are any questions or concerns that arise at home. ED course: Patient has no SI or HI. Patient will follow up with psychiatric tomorrow for reevaluation. Patient and family given wound infection return precautions. patient understood and agrees with the plan of care. . 12/21 17:18 Order name: Dermabond; Complete Time: 19:17 [facility] Administered Medications: 19:18 Drug: Marcaine (0.5 %) 20 ml Volume: 10 ml; Route: Infiltration; vc Disposition: 12/21/19 20:17 Discharged to Home. Impression: Forearm Laceration. - Condition is Stable. - Discharge Instructions: Laceration Care, Adult. - Prescriptions for Bactrim DS 800- 160 mg Oral Tablet - take 1 tablet by ORAL route every 12 hours for 7 days; 14 tablet. - Medication Reconciliation Form, Thank You Letter, Antibiotic Education, Prescription Opioid Use form. - Follow up: Private Physician; When: 2 - 3 days; Reason: Recheck today's complaints, Continuance of care, Re-evaluation by your physician. Addendum: 12/23/2019 19:05 Co-signature as Attending Physician, Emiliano Albright MD. r n Signatures: Jorge Gordon PA PA jmm Nieto, Roman, MD MD rn Richelle Wyman RN RN ls4 Grace Carrizales RN RN vc Corrections: (The following items were deleted from the chart) 12/21 20:45 20:17 12/21/2019 20:17 Discharged to Home. Impression: Forearm Laceration. Condition is vc Stable. Forms are Medication Reconciliation Form, Thank You Letter, Antibiotic Education, Prescription Opioid Use. Follow up: Private Physician; When: 2 - 3 days; Reason: Recheck today's complaints, Continuance of care, Re-evaluation by your physician. maximo
[2019-12-22 01:56] VITALS: TEMP 98.6
[2019-12-22 01:59] VITALS: O2SAT 100
[2019-12-22 02:00] VITALS: BP 118/54
== END 2019-12-21 20:45 | disposition home or self-care (01) ==
LOC: ER 16:25
PROC: 0JQH0ZZ Repair Left Lower Arm Subcutaneous Tissue and Fascia, Open Approach (ICD-10-PCS; principal; 2019-12-21)
DX: S51.812A Laceration without foreign body of left forearm, initial encounter (principal); X78.9XXA Intentional self-harm by unspecified sharp object, initial encounter; Y93.9 Activity, unspecified; Y92.9 Unspecified place or not applicable; Z88.1 Allergy status to other antibiotic agents
CPT/HCPCS: 82947; 99284

== ENCOUNTER 2021-01-09 14:41 | Emergency (ER) | payer OTHER ==
--- OUTSIDE RECORDS SUMMARY | 2021-01-09 14:44 | XMS REPORT | Continuity of Care Document ---
:2000 Author Organization [facility] t Address [address] [place] [address] Care Team Providers Name Role Phone Cody GRAMAJO Attending Clinician AAYUSH MERIDA Attending Clinician Unavailable AAYUSH MERIDA Admitting Clinician Unavailable Problems Condition Condition Condition Status Onset Resolution Last Treating Co mments Source Name Details Category Date Date Treatment Clinician Date Substance Substance Disease Active [facility] St abuse [facility] 7[facility]16 [facility] Acute Acute Disease Active [facility] respirator respirator 7-16 Jessy kes - y failure y failure 00:00: Medi deloris with with 00 Center hypoxemia hypoxemia Allergies, Adverse Reactions, Alerts This patient has no known allergies or adverse reactions. Social History Social Habit Start Date Stop Date Quantity Comments Source Sex Assigned At [facility] [place] Medications This patient has no known medications. Procedures This patient has no known procedures. Plan of Care Planned Activity Planned Date Details Comments Source Future Scheduled 2020-06-29 INFLUENZA VACCINE [facility] - Test 00:00:00 (#1) [code = [facility] INFLUENZA VACCINE (#1)] Encounters Start End Encounter Admission Attending Care Care Encounter Source Date/Time Date/Time Type Type Clinicians Facility Department ID 2020-07-01 2020-07-01 Telephone SUAD Ross [id number] 00:00:00 00:00:00 Nelson Chang [id number] [place] [id number] Professio [phone] [place] [address] Building 2020-06-15 2020-06-15 [facility] [id number] 00:00:00 00:00:00 Nelson Simmons [id number] [place] [id number] Professio [phone] [place] [address] Office Building One 2020-04-29 2020-04-29 [facility] [id number] 11:08:32 11:08:49 ne Visit Nelson Chang [id number] [place] [id number] Professio [phone] [address] 2020-01-23 2020-02-26 [facility] [id number] 07:02:54 09:36:58 ne Visit Nelson Chang [id number] [place] [id number] Professio [phone] [address] Results Test Description Test Time Test Comments Results Result Comments Source SPUTUM CULTURE + GRAM STAIN 2019-10-14 14:03:00 Test Item Value Reference Range Interpretation Comme nts CULTURE (BEAKER) (test code = STAPHYLOCOCCUS AUREUS A 4+ Staphylococcus aureus 1095) Clindamycin (test code = 10) R Erythromycin (test code = 4) R Linezolid (test code = 40) S Nitrofurantoin (test code = S 23) Oxacillin (test code = 14) S Rifampin (test code = 43) S Tetracycline (test code = 2) S Trimethoprim + S Sulfamethoxazole (test code = 47) Vancomycin (test code = 13) S GRAM STAIN RESULT (BEAKER) 1+ White blood cells seen (test code = 1123) GRAM STAIN RESULT (BEAKER) 0-5 epithelial cells (test code = 836788) GRAM STAIN RESULT (BEAKER) 3+ gram positive cocci in (test code = 198053) chains and pairs 4+ Normal respiratory gabrielle presentPOCT-GLUCOSE [id number] 11:34:00 Test Item Value Reference Range Interpretation Comments POC-GLUCOSE METER 93 mg/dL 70-110 TESTED AT [place] [address] (BEAKER) (test code = THOR Wright [facility] [address] 1538) POCT-GLUCOSE [id number] 18:22:00 Test Item Value Reference Range Interpretation Comments POC-GLUCOSE METER 82 mg/dL 70-110 TESTED AT [place] [address] [facility] (test code = THOR Wright [facility] [address] 1538) B-TYPE NATRIURETIC FACTOR (BNP)2019-05-13 13:29:00 Test Item Value Reference Range Interpretation Comments B-TYPE NATRIURETIC PEPTIDE (BEAKER) < pg/mL 0-100 (test code = 700) POCT-GLUCOSE [id number] 11:56:00 Test Item Value Reference Range Interpretation Comments POC-GLUCOSE METER 77 mg/dL 70-110 TESTED AT [place] [address] ([facility]) (test code = THOR Wright [facility] [address] 1538) COMPREHENSIVE METABOLIC [id number] 11:55:00 Test Item Value Reference Range Interpretation Comments TOTAL PROTEIN 6.9 gm/dL 6.0-8.3 Specimen sligh tly (BEAKER) (test code = hemoly zed 770) ALBUMIN (BEAKER) 4.2 g/dL 3.5-5.0 Specimen sl ightly (test code = 1145) hemolyzed ALKALINE PHOSPHATASE 58 U/L 40-150 (BEAKER) (test code = 346) BILIRUBIN TOTAL 2.5 mg/dL 0.2-1.2 H Specimen sli ghtly (BEAKER) (test code = hemoly zed 377) SODIUM (BEAKER) (test 138 meq/L 136-145 code = 381) POTASSIUM (BEAKER) 4.0 meq/L 3.5-5.1 Specimen slightly (test code = 379) hemolyzed CHLORIDE (BEAKER) 107 meq/L 98-107 (test code = 382) CO2 (BEAKER) (test 23 meq/L 22-29 code = 355) BLOOD UREA NITROGEN 10 mg/dL 7-21 (BEAKER) (test code = 354) CREATININE (BEAKER) 0.96 mg/dL 0.57-1.25 Specimen slightly (test code = 358) hemolyzed GLUCOSE RANDOM 80 mg/dL 70-105 (BEAKER) (test code = 652) CALCIUM (BEAKER) 9.2 mg/dL 8.4-10.2 (test code = 697) AST (SGOT) (BEAKER) 23 U/L 5-34 Specimen slightly (test code = 353) hemolyzed ALT (SGPT) (BEAKER) 14 U/L 6-55 Specimen slightly (test code = 347) hemolyzed EGFR (BEAKER) (test 101 ESTIMATE D GFR IS code = 1092) mL/min/1.73 sq NOT ACCURA TE m CREATININE CLEARANCE IN PREDICTING GLOMERULAR FILTRATION RATE . ESTIMATED GFR I S NOT APPLICABLE FOR DIALYSIS PATIEN TS. Specimen slightly [id number] 11:55:00 Test Item Value Reference Range Interpretation Comments MAGNESIUM (BEAKER) 2.3 mg/dL 1.6-2.6 Specimen slightly (test code = 627) hemolyzed [id number] 11:55:00 Test Item Value Reference Range Interpretation Comments PHOSPHORUS (BEAKER) 3.8 mg/dL 2.3-4.7 Specimen slightly (test code = 604) hemolyzed CBC W/PLT COUNT & AUTO [id number] 11:38:00 Test Item Value Reference Range Interpretation Comments WHITE BLOOD CELL COUNT (BEAKER) 13.8 K/ L 3.5-10.5 H (test code = 775) RED BLOOD CELL COUNT (BEAKER) 4.73 M/ L 4.63-6.08 (test code = 761) HEMOGLOBIN (BEAKER) (test code = 13.0 GM/DL 13.7-17.5 L 410) HEMATOCRIT (BEAKER) (test code = 41.1 % 40.1-51.0 411) MEAN CORPUSCULAR VOLUME (BEAKER) 86.9 fL 79.0-92.2 (test code = 753) MEAN CORPUSCULAR HEMOGLOBIN 27.5 pg 25.7-32.2 (BEAKER) (test code = 751) MEAN CORPUSCULAR HEMOGLOBIN CONC 31.6 GM/DL 32.3-36.5 L (BEAKER) (test code = 752) RED CELL DISTRIBUTION WIDTH 14.4 % 11.6-14.4 (BEAKER) (test code = 412) PLATELET COUNT (BEAKER) (test 217 K/CU MM 150-450 code = 756) MEAN PLATELET VOLUME (BEAKER) 9.7 fL 9.4-12.4 (test code = 754) NUCLEATED RED BLOOD CELLS 0 /100 WBC 0-0 (BEAKER) (test code = 413) NEUTROPHILS RELATIVE PERCENT 73 % (BEAKER) (test code = 429) LYMPHOCYTES RELATIVE PERCENT 14 % (BEAKER) (test code = 430) MONOCYTES RELATIVE PERCENT 11 % (BEAKER) (test code = 431) EOSINOPHILS RELATIVE PERCENT 2 % (BEAKER) (test code = 432) BASOPHILS RELATIVE PERCENT 0 % (BEAKER) (test code = 437) NEUTROPHILS ABSOLUTE COUNT 10.06 K/ L 1.78-5.38 H (BEAKER) (test code = 670) LYMPHOCYTES ABSOLUTE COUNT 1.97 K/ L 1.32-3.57 (BEAKER) (test code = 414) MONOCYTES ABSOLUTE COUNT (BEAKER) 1.47 K/ L 0.30-0.82 H (test code = 415) EOSINOPHILS ABSOLUTE COUNT 0.20 K/ L 0.04-0.54 (BEAKER) (test code = 416) BASOPHILS ABSOLUTE COUNT (BEAKER) 0.05 K/ L 0.01-0.08 (test code = 417) IMMATURE GRANULOCYTES-RELATIVE 0 % 0-1 PERCENT (BEAKER) (test code = 2801) CREATININE, RANDOM [id number] 10:00:00 Test Item Value Reference Range Interpretation Comments CREATININE URINE (BEAKER) (test 215.2 mg/dL code = 375) Reference Range: No NormalsCHLORIDE, RANDOM [id number] 09:57:00 Test Item Value Reference Range Interpretation Comments CHLORIDE URINE (BEAKER) (test code 126 meq/L = 682) Reference Range: No NormalsPROTEIN, RANDOM [id number] 09:57:00 Test Item Value Reference Range Interpretation Comments PROTEIN, URINE (BEAKER) (test code = 14 mg/dL 0-14 1569) SODIUM, RANDOM [id number] 09:57:00 Test Item Value Reference Range Interpretation Comments SODIUM URINE (BEAKER) (test code = 150 meq/L 243) Reference Range: No NormalsRAD, CHEST, 1 VIEW, NON [id number] 09:35:00Reason for exam:->hypoxemiaShould this be performed at the bedside?->YesFINAL REPORT Chest one view. Clinical history: hypoxemia Comparison: No priors Discussion: A frontal chest is provided. Cardiomediastinal contours are normal. ET is 5.5 cm above the annette. A feeding tube projects below the diaphragm. There is no consolidation, pulmonary edema, pneumothorax, or significant effusion. Osseous structures appear intact. Signed: Tammy Woodruff MDReportVerified Date/Time: 05/13/2019 09:35:14 Reading Location: [facility] Radiology Reading Room
--- NOTE | 2021-01-09 16:18 | RAD REPORT ---
EXAM DESCRIPTION: RAD - Chest Pa And Lat (2 Views) - 01/09/2021 3:17 pm CLINICAL HISTORY: COUGH COMPARISON: Portable April 2019 TECHNIQUE: Frontal and lateral views of the chest were obtained. FINDINGS: The lungs are clear. Heart size is normal and central vasculature is within normal limit s. No pleural effusion or pneumothorax seen. No acute bony finding noted. No aortic abnormality. No significant interval changes. IMPRESSION: No acute cardiopulmonary process.
[2021-01-09 16:25] LABS: SARS-COV-2 RT PCR NEGATIVE (NEGATIVE)
[2021-01-09] MEDS ORDERED: NA CHLORIDE 0.9% 1,000 ML ONE (17:31)
[2021-01-09 18:06] LABS: Absolute Lymphocytes (CBC) 1.9 K/uL (0.7-4.9); Basophils % 0.6 % (0-1.3); Hematocrit 40.2 % (39.6-49.0); Lymphocytes % 25.1 % (15.3-44.8); MPV 8.1 fL (7.6-11.3); RBC Red Blood Cell Count 4.59 M/uL (4.33-5.43)
[2021-01-09 18:31] LABS: BUN Blood Urea Nitrogen 19 mg/dL (7-18); Bicarbonate 26 mmol/L (21-32); Glucose Level 103 mg/dL (74-106); Potassium 3.8 mmol/L (3.5-5.1); Sodium Level 141 mmol/L (136-145)
--- NOTE | 2021-01-09 18:35 | ER ---
Nurse's Notes [facility] Name: Saqib An Age: 20 yrs Sex: Male : 2000 Arrival Date: 01/09/2021 Time: 14:47 Bed 19 Private MD: Diagnosis: Diarrhea, unspecified;Cough Presentation: 01/09 14:52 Chief complaint: Patient states: Slight cough, abd pain with diarrhea, [place], slight ll1 decreased smell for 4 days. Pain to L chest with coughing. Coronavirus screen: Client denies travel out of the [place] in the last 14 days. cough unrelated to allergies, diarrhea, fatigue, headache, loss of taste or smell, Client presents with at least one sign or symptom that may indicate coronavirus-19. Standard/surgical mask placed on the client. Ebola Screen: Patient denies travel to an Ebola-affected area in the 21 days before illness onset. Initial Sepsis Screen: Does the patient meet any 2 criteria? No. Patient's initial sepsis screen is negative. Does the patient have a suspected source of infection? Yes: Productive cough/pneumonia. Risk Assessment: Do you want to hurt yourself or someone else? Patient reports no desire to harm self or others. Onset of symptoms was January 05, 2021. 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 - Social history:: Smoking status: Patient reports the use of cigarette tobacco products, denies chronic smoking, but will smoke occasionally. Screenin:20 Abuse screen: Denies threats or abuse. Nutritional screening: No deficits noted. bw Tuberculosis screening: No symptoms or risk factors identified. Fall Risk None identified. Assessment: 17:20 Pain: Complains of pain in abd pain Pain does not radiate. Pain began 3 hours ago. bw Cardiovascular: No deficits noted. Reports chest pain. 17:28 Reassessment: Patient appears in no apparent distress at this time. Patient and/or bw family updated on plan of care and expected duration. Pain level reassessed. Patient is alert, oriented x 3, equal unlabored respirations, skin warm/dry/pink. Vital Signs: 14:52 BP 127 / 80; Pulse 81; Resp 17; Temp 98.2; Pulse Ox 97% ; Height 5 ft. 9 in. (175.26 ll1 cm); Pain 9/10; 17:20 BP 123 / 99; Pulse 74; Resp 18; Pulse Ox 98% ; bw ED Course: 14:47 Patient arrived in ED. mr 14:52 Arm band placed on. ll1 14:55 Triage completed. ll1 15:01 Mona Diallo FNP-C is [facility]. kb 15:01 Matthieu Blanchard MD is Attending Physician. kb 15:16 Chest Pa And Lat (2 Views) XRAY In Process Unspecified. EDDE 16:47 Lelia Sethi, MICHEL is Primary Nurse. bw 17:05 Initial lab(s) drawn, by wv, sent to lab. Inserted saline lock: 20 gauge in right [facility] antecubital area, using aseptic technique. Blood collected. 17:06 Patient has correct armband on for positive identification. Bed in low position. Call [facility] light in reach. Side rails up X 1. Warm blanket given. Pulse ox on. NIBP on. 17:08 [place] Screen Profile Sent. [facility] 17:08 Basic Metabolic Panel Sent. [facility] 17:08 CBC with Diff Sent. [facility] 17:20 No provider procedures requiring assistance completed. Patient maintains SpO2 bw saturation greater than 95% on room air. 19:00 Patient did not have IV access during this emergency room visit. IV discontinued, [facility] Pressure dressing applied. Inserted. Administered Medications: 17:20 Drug: NS 0.9% 1000 ml Route: IV; Rate: 1000 ml; Site: right antecubital; bw Outcome: 18:34 Discharge ordered by . kb 19:03 Patient left the ED. Signatures: Dispatcher [employer] EDDE Mona Diallo FNP-C FNP-Ckb Peggy Gregory, Aleida [facility] Briana Terry, RN RN 1 Lelia Sethi RN RN
--- NOTE | 2021-01-09 18:35 | EDPHYS ---
Physician Documentation [facility] Name: Saqib An Age: 20 yrs Sex: Male : 2000 Arrival Date: 01/09/2021 Time: 14:47 Bed 19 Private MD: ED Physician Matthieu Blanchard HPI: 01/09 17:02 This 20 yrs old Male presents to ER via Ambulatory with complaints of Cough, kb Chest Pain, Abdominal Pain, Headache. 17:02 The patient or guardian reports cough, that is intermittent, described as mild, kb difficulty breathing. Modifying factors: The symptoms are alleviated by nothing, the symptoms are aggravated by nothing. Associated signs and symptoms: Pertinent positives: chest pain, diarrhea. The patient has not experienced similar symptoms in the past. The patient has not recently seen a physician. 17:02 Onset: The symptoms/episode began/occurred 4 day(s) ago. Severity of symptoms: At their kb worst the symptoms were moderate, in the emergency department the symptoms are unchanged. 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 - Social history:: Smoking status: Patient reports the use of cigarette tobacco products, denies chronic smoking, but will smoke occasionally. ROS: 16:56 Constitutional: Negative for fever, chills, and weight loss, MS/Extremity: Negative for kb injury and deformity, Skin: Negative for injury, rash, and discoloration. 16:56 Constitutional: Positive for fatigue. 16:56 Cardiovascular: Positive for chest pain, with cough. 16:56 Respiratory: Positive for cough, shortness of breath. 16:56 Abdomen/GI: Positive for abdominal pain, diarrhea. 16:56 Neuro: Positive for headache. Exam: 17:02 Constitutional: This is a well developed, well nourished patient who is awake, alert, kb and in no acute distress. Head/Face: Normocephalic, atraumatic. Chest/axilla: Normal chest wall appearance and motion. Cardiovascular: Regular rate and rhythm with a normal S1 and S2. No gallops, murmurs, or rubs. No pulse deficits. Respiratory: Lungs have equal breath sounds bilaterally, clear to auscultation. No rales, rhonchi or wheezes noted. No increased work of breathing, no retractions or nasal flaring. Abdomen/GI: Soft, non-tender, with normal bowel sounds. No distension. No guarding or rebound. No evidence of tenderness throughout. Skin: Warm, dry with normal turgor. Normal color with no rashes, no lesions, and no evidence of cellulitis. MS/ Extremity: Pulses equal, no cyanosis. Neurovascular intact. Full, normal range of motion. Neuro: Awake and alert, GCS 15, oriented to person, place, time, and situation. Cranial nerves II-XII grossly intact. Moves all extremities. Sensory grossly intact. Cerebellar exam normal. Normal gait. Vital Signs: 14:52 BP 127 / 80; Pulse 81; Resp 17; Temp 98.2; Pulse Ox 97% ; Height 5 ft. 9 in. (175.26 ll1 cm); Pain 9/10; 17:20 BP 123 / 99; Pulse 74; Resp 18; Pulse Ox 98% ; bw MDM: 15:58 Patient medically screened. sol 16:55 Data reviewed: vital signs, nurses notes. Data interpreted: Pulse oximetry: on room air kb is 97 %. Interpretation: normal. 18:33 Counseling: I had a detailed discussion with the patient and/or guardian regarding: the kb historical points, exam findings, and any diagnostic results supporting the discharge/admit diagnosis, lab results, radiology results, the need for outpatient follow up, a family practitioner, to return to the emergency department if symptoms worsen or persist or if there are any questions or concerns that arise at home. 01/09 16:25 Order name: COVID-19/FLU A+B; Complete Time: 16:32 EDMS 01/09 16:33 Order name: CBC with Diff; Complete Time: 18:10 kb 01/09 16:33 Order name: Basic Metabolic Panel; Complete Time: 18:33 kb 01/09 16:33 Order name: [place] Screen Profile; Complete Time: 17:49 kb 01/09 15:01 Order name: Chest Pa And Lat (2 Views) XRAY; Complete Time: 16:32 kb 01/09 16:33 Order name: IV Start; Complete Time: 17:10 kb Administered Medications: 17:20 Drug: NS 0.9% 1000 ml Route: IV; Rate: 1000 ml; Site: right antecubital; bw Disposition: 01/10 06:54 Co-signature as Attending Physician, Matthieu Blanchard MD I agree with the assessment and sol plan of care. Disposition: 01/09/21 18:34 Discharged to Home. Impression: Diarrhea, unspecified, Cough. - Condition is Stable. - Discharge Instructions: Food Choices to Help Relieve Diarrhea, Adult, Diarrhea, Adult, [id number], Cough, Adult, Itei-bk-Rnzk, Viral Respiratory Infection, Foxl-Bj-Jknr. - Work release form, Medication Reconciliation Form, Thank You Letter, Antibiotic Education, Prescription Opioid Use form. - Follow up: Emergency Department; When: As needed; Reason: Worsening of condition. Follow up: Private Physician; When: 2 - 3 days; Reason: Recheck today's complaints, Continuance of care, Re-evaluation by your physician. Signatures: Dispatcher [employer] [facility] Mona Diallo, MANAGER HOSPITALITY-C MANAGER HOSPITALITY-Matthieu Wick MD MD cha Lewis, Lynsay, RN RN [address] Boyd StreetLelia salinas RN RN Corrections: (The following items were deleted from the chart) 01/09 15:46 15:01 CORONAVIRUS+MR.LAB.BRZ ordered. [facility] 15:46 15:01 Influenza Screen (A \T\ B)+BA.LAB.BRZ ordered. [facility] 19:03 18:34 01/09/2021 18:34 Discharged to Home. Impression: Diarrhea, unspecified; Cough. bw Condition is Stable. Forms are Medication Reconciliation Form, Thank You Letter, Antibiotic Education, Prescription Opioid Use. Follow up: Emergency Department; When: As needed; Reason: Worsening of condition. Follow up: Private Physician; When: 2 - 3 days; Reason: Recheck today's complaints, Continuance of care, Re-evaluation by your physician. kb
[2021-01-10 15:29] VITALS: TEMP 98.2
[2021-01-10 15:30] VITALS: BP 123/99; O2SAT 98
== END 2021-01-09 19:03 | disposition home or self-care (01) ==
LOC: ER 14:41
DX: R19.7 Diarrhea, unspecified (principal); F17.210 Nicotine dependence, cigarettes, uncomplicated; Z20.822 Contact with and (suspected) exposure to COVID-19; Z88.1 Allergy status to other antibiotic agents
CPT/HCPCS: 85025; 80048; 36415; 86308; 0240U; 71046; J7030; 99284

== ENCOUNTER 2022-01-14 06:57 | Emergency (ER) | payer OTHER ==
--- OUTSIDE RECORDS SUMMARY | 2022-01-14 07:01 | XMS REPORT | Continuity of Care Document ---
:2000 Author Organization [facility] t Address [address] [place] [address] Care Team Providers Name Role Phone CODY Primary Care Physician Unavailable CODY Attending Clinician Unavailable Cody GRAMAJO Attending Clinician AAYUSH MERIDA Attending Clinician Unavailable AAYUSH MERIDA Admitting Clinician Unavailable Payers Payer Name Policy Type Policy Number Effective Date Expiration Date Doroteo claudio [facility] STAR [id number] 2021 00:00:00 PLUS Problems Condition Condition Condition Status Onset Resolution Last Treating Co mments Source Name Details Category Date Date Treatment Clinician Date Exposure Exposure Disease Active Unive rs to to 11-16 ity of sexually sexually 00:00: [place] transmitte transmitte 00 Me dical d disease d disease Bran ch (STD) (STD) Thrombocyt Thrombocyt Disease Active U nivers osis osis 06 ity of 00:00: [place] 00 Medical Branch Need for Need for Disease Active Unive rs prophylact prophylact 04 it y of ic ic 00:00: [place] vaccinatio vaccinatio 00 Me dical n against n against Bran ch human human papillomav papillomav irus (HPV) irus (HPV) types 6, types 6, 11, 16, 11, 16, and 18 and 18 Otalgia of Otalgia of Disease Active 2020-10 U nivers left ear left ear 2-07 ity of 00:00: [place] 00 Medical Branch Screening, Screening, Disease Active 2020-10 U nivers lipid lipid 2-07 ity of 00:00: [place] Medical [facility] Need for Need for Disease Active 2020-10 Unive rs hepatitis hepatitis 2-07 ity of C C 00:00: [place] screening screening 00 Medi deloris test test Branch Dental Dental Disease Active 2020-10 Univers caries caries 2-07 ity of 00:00: [place] Medical [facility] Tooth Tooth Disease Active 2019- Univers abscess abscess 3-27 ity of 00:00: [place] Medical [facility] Tooth pain Tooth pain Disease Active 2019- U nivers 3-27 ity of 00:00: [place] Medical Branch Depression Depression Disease Active U nivers with with 3-27 ity of anxiety anxiety 00:00: [place] 00 Medical Branch Suicide Suicide Disease Active Univers attempt by attempt by 327 it y of acetaminop [place]aminop [place] 00 Medical overdose, overdose, Bran ch sequela sequela Allergies, Adverse Reactions, Alerts Allergy Allergy Status Severity Reaction(s) Onset Inactive Treating Comm ents Source Name Type Date Date Clinician Amoxicil Propensi Active Unknown - 2014-10 Uni vers didier ty to See comments 0-28 ity of adverse 00:00: [place] reaction 00 Medical s Branch AMOXICIL DRUG Active Unknown-Cmnt 2014-10 Un ike DIDIER INGREDI 0-28 ity of 00:00: [place] 00 Medical Branch NO KNOWN Allergy Active [facility] Social History Social Habit Start Date Stop Date Quantity Comments Source Exposure to Not sure [facility] SARS-CoV-2 [place] Medical (event) Branch Tobacco use and 2019-05-21 2019-05-21 Never used Universit y of exposure 00:00:00 00:00:00 [facility] History of 2019-05-07 Cigarette Smoker Universi ty of tobacco use 00:00:00 [facility] Sex Ass[birth year] Universit y of 00:00:00 00:00:00 [facility] Smoking Status Start Date Stop Date Source Former smoker 2019-05-21 00:00:00 2019-05-21 00:00:00 [facility] Medications Ordered Filled Start Stop Current Ordering Indication Dosage Frequency Signature Comments Components Source Medication Medication Date Date Medication? Clinician (SIG) Name Name clindamycin 2020-10 Yes [id number] 300mg Take 1 Univers 300 mg 2-07 capsule by ity of capsule 00:00: mouth (four) Medical times Branch daily. ibuprofen 2020-10 Yes [id number] 600mg Take 1 Univers 600 mg 2-07 tablet by ity of tablet 00:00: mouth [place] 00 every 6 Medical (six) Branch hours as needed for Pain (scale 4-6). clindamycin 2020-10 Yes [id number] 300mg Take 1 Univers 300 mg 2-07 capsule by ity of capsule 00:00: mouth (four) Medical times Branch daily. ibuprofen 2020-10 Yes [id number] 600mg Take 1 Univers 600 mg 2-07 tablet by ity of tablet 00:00: mouth [place] 00 every 6 Medical (six) Branch hours as needed for Pain (scale 4-6). naproxen Yes [id number] 550mg Take 1 Un ike sodium 4-25 tablet by ity of (ANAPROX 00:00: mouth 2 [place] DS) 550 mg 00 (two) Medical tablet times Branch daily with meals. methylPREDN 0 Yes [id number] Take by Univers ISolone 4-25 mouth ity of (MEDROL, 00:00: SEE-INSTRU Kael as JORJE,) 4 mg 00 CTIONS. Medica l tablets follow Branch package directions naproxen 2020-0 Yes [id number] 550mg Take 1 Un ike sodium 4-25 tablet by ity of (ANAPROX 00:00: mouth 2 [place] DS) 550 mg 00 (two) Medical tablet times Branch daily with meals. methylPREDN 2020-0 Yes [id number] Take by Univers ISolone 4-25 mouth ity of (MEDROL, 00:00: SEE-INSTRU Kael as JORJE,) 4 mg 00 CTIONS. Medica l tablets follow Branch package directions Immunizations Ordered Filled Immunization Date Status Comments [facility] Immunization Name Name HPV9 2021-12-07 Completed [facility] 00:00:00 [facility] HPV9 2021-12-07 Completed [facility] 00:00:00 [facility] Influenza Virus 2021-11-01 Completed Universit y of Vaccine Quad IM, 00:00:00 [facility] dical Preserv and ABX Branch Free 6 MO-64 YRS Pneumococcal 13 2021-11-01 Completed Universit y of Conjugate, PCV13 00:00:00 [facility] dical (Prevnar 13) Branch Influenza Virus 2021-11-01 Completed Universit y of Vaccine Quad IM, 00:00:00 [facility] dical Preserv and ABX Branch Free 6 MO-64 YRS Pneumococcal 13 2021-11-01 Completed Universit y of Conjugate, PCV13 00:00:00 [facility] dical (Prevnar 13) [place] SARS-COV-2 COVID-19 2021-10-11 Completed Unive rsity of ALYSON/J&J VACCINE 00:00:00 [facility] SARS-COV-2 COVID-19 2021-10-11 Completed Unive rsity of ALYSON/J&J VACCINE 00:00:00 [facility] Vital Signs Vital Name Observation Time Observation Value Comments Source Systolic blood 2021-12-07 19:34:00 125 mm[Hg] Univer sity of pressure [facility] Diastolic blood 2021-12-07 19:34:00 79 mm[Hg] Unive rsity of pressure [facility] Heart rate 2021-12-07 19:34:00 92 /min [facility] Body temperature 2021-12-07 19:34:[address] [facility] Respiratory rate 2021-12-07 19:34:00 18 /min [facility] Body height 2021-12-07 19:34:00 172.7 cm [facility] Body weight 2021-12-07 19:34:00 77.928 kg [facility] BMI 2021-12-07 19:34:00 26.12 kg/m2 [facility] Oxygen saturation in 2021-12-07 19:34:00 97 /min [facility] blood by [facility] Pulse oximetry Branch Procedures Procedure Date / Time Performed Performing Clinician Sourc e GARDASIL 9 (HPV 9V) 2021-12-07 20:25:08 Alyssa Ross [facility] Encounters Start End Encounter Admission Attending Care Care Encounter Source Date/Time Date/Time Type Type Clinicians Facility Department ID 2022-01-03 2022-01-03 Outpatient R CODY [facility] [id number] [facility] 15:40:00 15:40:[address] [facility] 2021-12-07 2021-12-07 Office [facility] [id number] [facility] 13:20:00 14:15:20 Visit Alyssa CHANG [id number] i [facility] [id number] Yulia benavides PROFESSIO [phone] Ia dical [address] 2020-07-01 2020-07-01 Telephone [facility] [id number] 00:00:00 00:00:00 Alyssa Chang [id number] [place] [id number] Professio [phone] [address] 2020-06-15 2020-06-15 Telephone [facility] [id number] 00:00:00 00:00:00 Alyssa Iris [id number] [place] [id number] Professio [phone] [place] [address] Office [facility] 2020-04-29 2020-04-29 [facility] [id number] 11:08:32 11:08:49 ne Visit Alyssa Chang [id number] [place] [id number] Professio [phone] [address] 2020-01-23 2020-02-26 [facility] [id number] 07:02:54 09:36:58 ne Visit Alyssa Chang [id number] [place] [id number] Professio [phone] [place] 044 Building Results Test Description Test Time Test Comments Results Result Comments Source SPUTUM CULTURE + GRAM STAIN 2019-10-14 14:03:00 Test Item Value Reference Range Interpretation Comme nts CULTURE ([facility]) (test code = STAPHYLOCOCCUS AUREUS A 4+ [...] code = 13) S GRAM STAIN RESULT ([facility]) 1+ White blood cells seen (test code = 1123) GRAM STAIN RESULT ([facility]) 0-5 epithelial cells (test code = 597961) GRAM STAIN RESULT ([facility]) 3+ gram positive cocci in (test code = 328924) chains and pairs 4+ Normal respiratory gabrielle presentPOCT-GLUCOSE [id number] 11:34:00 Test Item Value Reference Range Interpretation Comments POC-GLUCOSE METER 93 mg/dL 70-110 TESTED AT [place] [address] ([facility]) (test code = [facility] [address] 1538) POCT-GLUCOSE [id number] 18:22:00 Test Item Value Reference Range Interpretation Comments POC-GLUCOSE METER 82 mg/dL 70-110 TESTED AT [place] [address] ([facility]) (test code = [facility] [address] 1538) B-TYPE NATRIURETIC FACTOR (BNP)2019-05-13 13:29:00 Test Item Value Reference Range Interpretation Comments B-TYPE NATRIURETIC PEPTIDE ([facility]) < pg/mL 0-100 (test code = 700) POCT-GLUCOSE [id number] 11:56:00 Test Item Value Reference Range Interpretation Comments POC-GLUCOSE METER 77 mg/dL 70-110 TESTED AT [place] [address] ([facility]) (test code = [facility] [address] 1538) [id number] 11:55:00 Test Item Value Reference Range Interpretation Comments MAGNESIUM ([facility]) 2.3 mg/dL 1.6-2.6 Specimen slightly (test code = 627) hemolyzed [id number] 11:55:00 Test Item Value Reference Range Interpretation Comments PHOSPHORUS (BEAKER) 3.8 mg/dL 2.3-4.7 Specimen slightly (test code = 604) hemolyzed COMPREHENSIVE METABOLIC [id number] 11:55:00 Test Item Value Reference Range Interpretation [...] APPLICABLE FOR DIALYSIS PATIEN TS. Specimen slightly ictericCBC W/PLT COUNT & AUTO [id number] 11:38:00 Test Item Value Reference Range Interpretation [...] (BEAKER) (test code = 2801) CREATININE, RANDOM [id number] 10:00:00 Test Item Value Reference Range Interpretation Comments CREATININE URINE (BEAKER) (test 215.2 mg/dL code = 375) Reference Range: No NormalsCHLORIDE, RANDOM [id number] 09:57:00 Test Item Value Reference Range Interpretation Comments CHLORIDE URINE (BEAKER) (test code 126 meq/L = 682) Reference Range: No NormalsPROTEIN, RANDOM [id number] 09:57:00 Test Item Value Reference Range Interpretation Comments PROTEIN, URINE (BEAKER) (test code = 14 mg/dL 0-14 1569) SODIUM, RANDOM [id number] 09:57:00 Test Item Value Reference Range Interpretation Comments SODIUM URINE (BEAKER) (test code = 150 meq/L 243) Reference Range: No NormalsRAD, CHEST, 1 VIEW, NON [id number] 09:35:00Reason for exam:->hypoxemiaShould this be performed at [...] Woodruff MDReportVerified Date/Time: 05/13/2019 09:35:14 Reading Location: [facility] Radiology Reading Room
--- NOTE | 2022-01-14 07:30 | ER ---
Nurse's Notes [facility] Name: Saqib An Age: 21 yrs Sex: Male : 2000 Arrival Date: 01/14/2022 Time: 07:00 Bed 16 Private MD: Nelson Ross Diagnosis: Other specified disorders of teeth and supporting structures Presentation: 01/14 07:10 Chief complaint: Patient states: Has had a broken tooth and noticed Left side of jaw vg1 swelling that has increased in size the past two days. Pt states took Ibuprofen at 1200. Coronavirus screen: Vaccine status: Patient reports receiving the 2nd dose of the covid vaccine. Client denies travel out of the [place] in the last 14 days. At this time, the client does not indicate any symptoms associated with coronavirus-19. Ebola Screen: Patient negative for fever greater than or equal to 101.5 degrees Fahrenheit, and additional compatible Ebola Virus Disease symptoms. Initial Sepsis Screen: Does the patient meet any 2 criteria? No. Patient's initial sepsis screen is negative. Does the patient have a suspected source of infection? No. Patient's initial sepsis screen is negative. Risk Assessment: Do you want to hurt yourself or someone else? Patient reports no desire to harm self or others. Onset of symptoms was January 14, 2022. 07:10 Method Of Arrival: Ambulatory vg1 07:10 Acuity: SIERRA 4 vg1 Triage Assessment: 07:11 General: Appears in no apparent distress. uncomfortable, Behavior is calm, cooperative. vg1 Pain: Complains of pain in left jaw Pain currently is 2 out of 10 on a pain scale. 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 - Social history:: Smoking status: Patient reports the use of cigarette tobacco products, denies chronic smoking, but will smoke occasionally. Screenin:14 Abuse screen: Denies threats or abuse. Denies injuries from another. Nutritional ic1 screening: No deficits noted. Tuberculosis screening: No symptoms or risk factors identified. Fall Risk None identified. Assessment: 07:14 General: Appears uncomfortable, Behavior is calm, cooperative, appropriate for age. ic1 Pain: Complains of pain in upper left first molar, upper left second molar, upper left third molar, lower left third molar, lower left second molar and lower left first molar. Neuro: Level of Consciousness is awake, alert, obeys commands, Oriented to person, place, time, situation. Cardiovascular: Reports facial swelling on l side for several days. Denies fever. Respiratory: No deficits noted. GI: No deficits noted. : No deficits noted. EENT: No deficits noted. Derm: No deficits noted. Musculoskeletal: No deficits noted. Vital Signs: 07:10 BP 139 / 91; Pulse 65; Resp 16; Temp 97.6; Pulse Ox 100% ; Weight 81.65 kg; Height 5 vg1 ft. 9 in. (175.26 cm); Pain 2/10; 07:10 Body Mass Index 26.58 (81.65 kg, 175.26 cm) vg1 ED Course: 07:00 Patient arrived in ED. as 07:02 Nelson Ross is Private Physician. as 07:11 Triage completed. vg1 07:11 Arm band placed on. vg1 07:12 Mona Diallo FNP-C is PHCP. kb 07:12 James Dominguez MD is Attending Physician. kb 07:14 Tanisha Hein, MICHEL is Primary Nurse. ic1 07:14 Patient has correct armband on for positive identification. Bed in low position. Call ic1 light in reach. Side rails up X2. Pulse ox on. NIBP on. Warm blanket given. 07:38 Patient did not have IV access during this emergency room visit. ic1 Administered Medications: No medications were administered Outcome: 07:30 Discharge ordered by . kb 07:37 Discharged to home ambulatory. ic1 07:37 Condition: stable 07:37 Discharge instructions given to patient, Instructed on discharge instructions, follow up and referral plans. Demonstrated understanding of instructions, follow-up care, medications, Prescriptions given X 2. 07:38 Patient left the ED. ic1 Signatures: Mona Diallo FNP-C FNP-Ckb Martinez, Amelia as Garcia, Victoria RN RN vg1 Tanisha Hein RN RN ic1
--- NOTE | 2022-01-14 07:30 | EDPHYS ---
Physician Documentation [facility] Name: Saqib An Age: 21 yrs Sex: Male : 2000 Arrival Date: 01/14/2022 Time: 07:00 Bed 16 Private MD: Nelson Ross ED Physician James Dominguez HPI: 01/14 07:27 This 21 yrs old Male presents to ER via Ambulatory with complaints of Abscess, Facial kb Swelling. 07:27 Pt reports he has had an infected tooth to left lower jaw intermittently over the last kb year. States he has not been to a dentist for this. Has had rounds of antibiotics that make the pain and swelling go away for a while. Pain and swelling this time started 3 days ago. States he started taking some old, leftover antibiotics from the last time he had this issue, but only had 2.. 07:28 The patient presents with pain, swelling. The problem is located in the lower left kb second molar (#18) and lower left third molar (#17). Onset: The symptoms/episode began/occurred 3 day(s) ago. Duration: The symptoms are continuous. Modifying factors: The symptoms are alleviated by nothing, the symptoms are aggravated by nothing. Associated signs and symptoms: Pertinent positives: pain, swelling, Pertinent negatives: anorexia, chills, dysphagia, fever, inability to eat, nausea, redness in area, vomiting. Severity of symptoms: At their worst the symptoms were moderate, in the emergency department the symptoms are unchanged. The patient has experienced similar episodes in the past. The patient has not recently seen a physician. 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 - Social history:: Smoking status: Patient reports the use of cigarette tobacco products, denies chronic smoking, but will smoke occasionally. ROS: 07:26 Constitutional: Negative for fever, chills, and weight loss. kb 07:26 ENT: Positive for dental pain. 07:26 All other systems are negative. Exam: 07:26 Constitutional: This is a well developed, well nourished patient who is awake, alert, kb and in no acute distress. Head/Face: Normocephalic, atraumatic. Cardiovascular: Regular rate and rhythm with a normal S1 and S2. No gallops, murmurs, or rubs. No pulse deficits. Respiratory: Respirations even and unlabored. No increased work of breathing. Talking in full sentences Skin: Warm, dry with normal turgor. Normal color. MS/ Extremity: Pulses equal, no cyanosis. Neurovascular intact. Full, normal range of motion. Neuro: Awake and alert, GCS 15, oriented to person, place, time, and situation. Moves all extremities. Normal gait. Psych: Awake, alert, with orientation to person, place and time. Behavior, mood, and affect are within normal limits. 07:26 ENT: Dental exam: gum swelling, that is moderate, specifically in the lower left third molar (#17) and lower left second molar (#18), pain, that is moderate, specifically in the lower left third molar (#17) and lower left second molar (#18). Vital Signs: 07:10 BP 139 / 91; Pulse 65; Resp 16; Temp 97.6; Pulse Ox 100% ; Weight 81.65 kg; Height 5 vg1 ft. 9 in. (175.26 cm); Pain 2/10; 07:10 Body Mass Index 26.58 (81.65 kg, 175.26 cm) vg1 MDM: 07:12 Patient medically screened. kb 07:25 Data reviewed: vital signs, nurses notes. Data interpreted: Pulse oximetry: on room air kb is 100 %. Interpretation: normal. Counseling: I had a detailed discussion with the patient and/or guardian regarding: the historical points, exam findings, and any diagnostic results supporting the discharge/admit diagnosis, the need for outpatient follow up, a dentist, to return to the emergency department if symptoms worsen or persist or if there are any questions or concerns that arise at home. 07:29 ED course: Nontoxic in appearance. No trismus. kb Administered Medications: No medications were administered Disposition: 08:27 Co-signature as Attending Physician, James Dominguez MD I agree with the assessment and kdr plan of care. Disposition Summary: 01/14/22 07:30 Discharge Ordered Location: Home kb Condition: Stable kb Diagnosis - Other specified disorders of teeth and supporting structures kb Followup: kb - With: Emergency Department - When: As needed - Reason: Worsening of condition Followup: kb - With: Private Physician - When: 2 - 3 days - Reason: Recheck today's complaints, Continuance of care, Re-evaluation by your physician Discharge Instructions: - Discharge Summary Sheet kb - Dental Pain, [id number] kb - Dental Abscess, [id number] kb Forms: - Medication Reconciliation Form kb - Thank You Letter kb - Antibiotic Education kb - Prescription Opioid Use kb Prescriptions: - Clindamycin HCl 300 mg Oral Capsule - take 1 capsule by ORAL route every 6 hours for 10 days; 40 capsule; Refills: 0, kb Product Selection Permitted - Ibuprofen 800 mg Oral Tablet - take 1 tablet by ORAL route every 8 hours As needed take with food; 30 tablet; kb Refills: 0, Product Selection Permitted Signatures: Mona Diallo, PUNEET-C PUNEET-James Madden MD MD kdr Garcia, Victoria RN RN vg1
[2022-01-14 07:54] VITALS: BP 139/91; TEMP 97.6; O2SAT 100
== END 2022-01-14 07:38 | disposition home or self-care (01) ==
LOC: ER 06:57
DX: K08.89 Other specified disorders of teeth and supporting structures (principal); F17.210 Nicotine dependence, cigarettes, uncomplicated; Z88.1 Allergy status to other antibiotic agents
CPT/HCPCS: 99283

== ENCOUNTER 2022-04-24 18:40 | Emergency (ER) | payer OTHER ==
--- OUTSIDE RECORDS SUMMARY | 2022-04-24 18:45 | XMS REPORT | Continuity of Care Document ---
:2000 Author Organization [facility] t Address [facility] Michael Lowry [address] [place] [address] Care Team Providers Name Role Phone AAYUSH MERIDA Attending Clinician Unavailable AAYUSH MERIDA Admitting Clinician Unavailable Problems This patient has no known problems. Allergies, Adverse Reactions, Alerts Allergy Allergy Status Severity Reaction(s) Onset Inactive Treating Comm ents Source Name Type Date Date Clinician NO KNOWN Allergy Active [facility] Medications This patient has no known medications. Procedures This patient has no known procedures. Results Test Description Test Time Test Comments [...] (BEAKER) 0-5 epithelial cells (test code = 776401) GRAM STAIN RESULT (BEAKER) 3+ gram positive cocci in (test code = 945007) chains and pairs 4+ Normal respiratory gabrielle presentPOCT-GLUCOSE [id number] 11:34:00 Test Item Value Reference Range Interpretation Comments POC-GLUCOSE METER 93 mg/dL 70-110 TESTED AT [facility] 6720 (BEAKER) (test code = [facility] [address] 1538) POCT-GLUCOSE [id number] 18:22:00 Test Item Value Reference Range Interpretation Comments POC-GLUCOSE METER 82 mg/dL 70-110 TESTED AT [facility] 6720 (BEAKER) (test code = [place] [address] 1538) B-TYPE NATRIURETIC FACTOR (BNP)2019-05-13 13:29:00 Test Item Value Reference Range Interpretation Comments B-TYPE NATRIURETIC PEPTIDE (BEAKER) < pg/mL 0-100 (test code = 700) POCT-GLUCOSE [id number] 11:56:00 Test Item Value Reference Range Interpretation Comments POC-GLUCOSE METER 77 mg/dL 70-110 TESTED AT [facility] 6720 (BEAKER) (test code = [place] [address] 1538) [id number] 11:55:00 Test Item Value Reference Range Interpretation Comments PHOSPHORUS (BEAKER) 3.8 mg/dL 2.3-4.7 Specimen slightly (test code = 604) hemolyzed COMPREHENSIVE METABOLIC [id number] 11:55:00 Test Item Value Reference Range Interpretation [...] APPLICABLE FOR DIALYSIS PATIEN TS. Specimen slightly [id number] 11:55:00 Test Item Value Reference Range Interpretation Comments MAGNESIUM (BEAKER) 2.3 mg/dL 1.6-2.6 Specimen slightly (test code = 627) hemolyzed CBC W/PLT COUNT & AUTO [id number] 11:38:00 Test Item Value Reference Range Interpretation [...] (BEAKER) (test code = 2801) CREATININE, RANDOM [id number] 10:00:00 Test Item Value Reference Range Interpretation Comments CREATININE URINE (BEAKER) (test 215.2 mg/dL code = 375) Reference Range: No NormalsCHLORIDE, RANDOM [id number] 09:57:00 Test Item Value Reference Range Interpretation Comments CHLORIDE URINE (BEAKER) (test code 126 meq/L = 682) Reference Range: No NormalsPROTEIN, RANDOM [id number] 09:57:00 Test Item Value Reference Range Interpretation Comments PROTEIN, URINE (BEAKER) (test code = 14 mg/dL 0-14 1569) SODIUM, RANDOM [id number] 09:57:00 Test Item Value Reference Range Interpretation Comments SODIUM URINE (BEAKER) (test code = 150 meq/L 243) Reference Range: No NormalsRAD, CHEST, 1 VIEW, NON [id number] 09:35:00Reason for exam:->hypoxemiaShould this be performed at [...] Woodruff MDReportVerified Date/Time: 05/13/2019 09:35:14 Reading Location: [facility] Radiology Reading Room
[2022-04-24] MEDS ORDERED: ACETAMINOPHEN 500 MG TAB ONE (21:04)
--- NOTE | 2022-04-24 21:33 | ER ---
Nurse's Notes [facility] Name: Saqib An Age: 21 yrs Sex: Male : 2000 Arrival Date: 04/24/2022 Time: 18:46 Bed 12 Private MD: Diagnosis: Encounter for screening for other viral [id number] and Influenza Presentation: 04/24 19:31 Chief complaint: Patient states: I have a headache, I feel nauseous, and i have family kd3 that is sick with either flu or COVID. Coronavirus screen: Vaccine status: Patient reports receiving the 2nd dose of the covid vaccine. Ebola Screen: No symptoms or risks identified at this time. Initial Sepsis Screen: Does the patient meet any 2 criteria? No. Patient's initial sepsis screen is negative. Does the patient have a suspected source of infection? No. Patient's initial sepsis screen is negative. Risk Assessment: Do you want to hurt yourself or someone else? Patient reports no desire to harm self or others. Onset of symptoms was April 24, 2022. 19:31 Method Of Arrival: Ambulatory 3 19:31 Acuity: SIERRA 3 kd3 Triage Assessment: 19:33 Headache History: Denies prior headaches. General: Appears in no apparent distress. kd3 Behavior is calm, cooperative. Pain: Pain currently is 5 out of 10 on a pain scale. Pain: Pain began gradually, Also complains of nausea. Neuro: Level of Consciousness is awake, alert, obeys commands, Oriented to person, place, time, situation. GI: Reports diarrhea. 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 - Social history:: Smoking status: Patient reports the use of cigarette tobacco products, denies chronic smoking, but will smoke occasionally. Screenin:51 Abuse screen: Denies threats or abuse. Nutritional screening: No deficits noted. kl Tuberculosis screening: No symptoms or risk factors identified. Fall Risk None identified. Assessment: 21:50 General: Appears in no apparent distress. comfortable, Behavior is calm, cooperative, kl appropriate for age. Pain: Denies pain. Vital Signs: 19:31 BP 119 / 75; Pulse 61; Resp 18; Temp 98.7; Pulse Ox 100% ; Weight 75.3 kg; Height 5 ft. kd3 8 in. (172.72 cm); Pain 5/10; 21:50 BP 112 / 73; Pulse 58; Resp 16; Temp 98(O); Pulse Ox 98% on R/A; Pain 0/10; kl 19:31 Body Mass Index 25.24 (75.30 kg, 172.72 cm) kd3 ED Course: 18:46 Patient arrived in ED. ja2 19:03 Matthieu Oro PA is PHCP. cp 19:03 Emiliano Albright MD is Attending Physician. cp 19:16 James Dominguez MD is Attending Physician. cp 19:33 Triage completed. kd3 19:33 Arm band placed on right wrist. kd3 21:52 Patient has correct armband on for positive identification. kl 21:52 No provider procedures requiring assistance completed. Patient did not have IV access kl during this emergency room visit. Administered Medications: 20:59 Drug: Tylenol 1000 mg Route: PO; kl 21:52 Follow up: Response: Marked relief of symptoms kl Medication: 21:52 VIS not applicable for this client. kl Outcome: 21:32 Discharge ordered by . cp 21:52 Discharged to home ambulatory. kl 21:52 Condition: good 21:52 Discharge instructions given to patient, Instructed on discharge instructions, follow up and referral plans. Demonstrated understanding of instructions, follow-up care. 21:53 Patient left the ED. kl Signatures: Ilana Terry RN RN kl Page, Corey, PA PA cp Alexander, Jessica 2 Yanet Sullivan RN RN kd3
--- NOTE | 2022-04-24 21:33 | EDPHYS ---
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 - Social history:: Smoking status: Patient reports the use of cigarette tobacco products, denies chronic smoking, but will smoke occasionally. Vital Signs: 19:31 BP 119 / 75; Pulse 61; Resp 18; Temp 98.7; Pulse Ox 100% ; Weight 75.3 kg; Height 5 ft. kd3 8 in. (172.72 cm); Pain 5/10; 21:50 BP 112 / 73; Pulse 58; Resp 16; Temp 98(O); Pulse Ox 98% on R/A; Pain 0/10; kl 19:31 Body Mass Index 25.24 (75.30 kg, 172.72 cm) kd3 MDM: 19:50 Patient medically screened. cp 04/24 20:03 Order name: COVID-19 SARS RT PCR (Document "Date of Onset" if Symptomatic); Complete kl Time: 21:31 04/24 20:03 Order name: Influenza Screen (a \\T\\ B); Complete Time: 21:31 kl Administered Medications: 20:59 Drug: Tylenol 1000 mg Route: PO; kl 21:52 Follow up: Response: Marked relief of symptoms kl Disposition Summary: 04/24/22 21:32 Discharge Ordered Location: Home cp Problem: new cp Symptoms: have improved cp Condition: Stable cp Diagnosis - Encounter for screening for other viral diseases - COVID-19 and Influenza cp Followup: cp - With: Private Physician - When: 2 - 3 days - Reason: Worsening of condition Discharge Instructions: - Discharge Summary Sheet cp - Influenza Tests cp - Form - Return To Work cp - COVID-19: What Your Test Results Mean - CDC cp - COVID-19 Frequently Asked Questions cp - Preventing Influenza, Adult cp Forms: - Medication Reconciliation Form cp - Thank You Letter cp - Antibiotic Education cp - Prescription Opioid Use cp Signatures: Dispatcher [employer] Ilana Garcia, RN RN Matthieu Avalos PA PA cp Doucette, Kyli RN RN kd3
[2022-04-24 22:50] VITALS: BP 112/73; TEMP 98; O2SAT 98
== END 2022-04-24 21:53 | disposition home or self-care (01) ==
LOC: ER 18:40
DX: Z20.822 Contact with and (suspected) exposure to COVID-19 (principal)
CPT/HCPCS: 87804 ×2; U0003

== ENCOUNTER 2023-08-01 08:14 | Emergency (ER) | payer BC, OTHER ==
--- OUTSIDE RECORDS SUMMARY | 2023-08-01 08:31 | XMS REPORT | Continuity of Care Document ---
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 2021-11-01 Outpatient R CODY [facility] [id number] Univers 16:00:00 16:00:00 ALYSSA munguia [facility] 2021-10-11 2021-10-11 Outpatient R ALE [facility] [id number] Univers 14:00:00 14:00:00 ELIAZAR munguia [facility] 2021-10-11 2021-10-11 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 Security Consultant 2, Adc Lab [facility] 1.2.840.114 [id number] Univers 13:08:01 13:23:01 Visit Alyssa Ross [id number] it[id number] [phone] Dc dical NAL 353 [facility] 2021-10-11 2021-10-11 Imm/Inj Nurse, Adc Pob Immunization [facility] 1.2.840.114 [id number] Univers 13:16:29 13:16:35 Visit Eliazar Aguilera 350.1.13 .10 it[facility] [id number] [phone] Dc dical NAL 421 [facility] 2021-10-11 2021-10-11 Outpatient R CODY [facility] [id number] Univers 13:15:00 13:15:00 ALYSSA munguia [facility] 2021-10-10 2021-10-10 Outpatient R CODY [facility] [id number] Univers 08:45:00 08:45:00 ALYSSA munguia [facility] 2021-10-10 2021-10-10 [facility] [id number] Univers 08:45:00 08:45:00 ALYSSA damon [facility] 2021-10-04 2021-10-04 Office [facility] 1.2.840.114 [id number] Univers 13:10:02 14:12:27 Visit Alyssa RICO 350.1.13.10 i ty [id number] [phone] Dc dical NAL 044 [facility] 2021-10-04 2021-10-04 [facility] [id number] Univers 13:00:00 14:12:27 ALYSSA damon [facility] 2021-10-04 2021-10-04 Orders Doctor JOSUE 1.2.840.114 [id number] Univers 00:00:00 00:00:00 Only Unassigned, FELIPE 350.1.13.10 ity of [facility] 4.2.7.2.686 Kael as [phone] [facility] 00[address] [place] 2021-02-20 2021-02-20 Emergency [facility] 1.2.622.801 [id number] Univers 04:53:00 08:08:00 Juarez Rico 350.1.13.10 i ty of [place] [phone] [facility] [address] [place] 2020-08-03 2020-08-03 [facility] [id number] Univers 14:20:00 14:20:00 ALYSSA nilda [facility] 2020-07-01 2020-07-01 [facility] 1.2.840.114 [id number] Univers 00:00:00 00:00:00 Alyssa Rico 350.1.13.10 i [place] [phone] [address] 2020-07-01 2020-07-01 [facility] 1.2.840.114 [id number] 00:00:00 00:00:00 Alyssa Rico 350.1.13.10 [place] 4.2.7.2.686 Professio [phone] [address] 2020-06-15 2020-06-15 [facility] 1.2.840.114 [id number] 00:00:00 00:00:00 Alyssa [facility] 350.1.13.10 [place] 4.2.7.2.686 Professio [phone] [address] 2020-06-15 2020-06-15 Telephone [facility] 1.2.840.114 [id number] Univers 00:00:00 00:00:00 [facility] 350.1.13.10 it y of [place] 4.2.7.2.686 [place]ael as Professio [phone] [address] 2020-06-02 2020-06-02 Outpatient R [facility] [id number] Univers 15:40:00 15:40:00 ity [facility] 2020-05-01 2020-05-01 Outpatient R UNKNOWN, [facility] [id number] Univers 14:15:00 14:15:00 ATTENDING ity [facility] 2020-04-29 2020-04-29 [facility] 1.2.840.114 [id number] 11:08:32 11:08:49 ne Visit Alyssa Rico 350.1.13.10 [place] 4.2.7.2.[address] [phone] 2020-04-29 2020-04-29 Telemedici [facility] 1.2.840.114 [id number] Univers 11:08:32 11:08:49 ne Visit Alyssa Freedton 350.1.13.10 ity [place] [phone] Dc dic[address] 2020-04-29 2020-04-29 [facility] [id number] Univers 09:40:00 09:40:00 ALYSSA nilda [facility] 2020-04-29 2020-04-29 [facility] [id number] Univers 09:00:00 09:00:00 ALYSSA munguia [facility] 2020-01-23 2020-02-26 [facility] 1.2.840.114 [id number] 07:02:54 09:36:58 ne Visit Alyssa Freedton 350.1.13.10 [place] 4.2.7.2.686 Professio [phone] [address] 2020-01-23 2020-02-26 Telemedici [facility] 1.2.840.114 [id number] Univers 07:02:54 09:36:58 ne Visit Alyssa Rico 350.1.13.10 it[place] [phone] [address] 2020-02-25 2020-02-25 Orders Doctor JOSUE 1.2.840.114 [id number] Univers 00:00:00 00:00:00 Only Unassigned, FELIPE 350.1.13.10 ity of [facility] 4.2.7.2.686 Kael as [phone] [address] 2020-01-23 2020-01-23 [facility] 1026 [id number] Univers 08:40:00 08:40:00 ALYSSA munguia [facility] 2020-01-22 2020-01-22 Emergency [facility] [id number] Univers 08:59:58 09:38:00 Raghu Rico 350.1.13.10 i ty [place] [phone] [facility] 0[address] [place] 2020-01-22 2020-01-22 Orders Doctor JOSUE 1.2.840.114 [id number] Univers 00:00:00 00:00:00 Only Unassigned, FELIPE 350.1.13.10 ity of [place] [facility] 4.2.7.2.686 Kael as [phone] [facility] 009 [place] 2020-01-21 2020-01-21 Nurse JOSUE Roman 1.2.840.114 [id number] Univers 00:00:00 00:00:00 Triage Kelly WANG 350.1.13.10 it y of HOSPITAL 4.2.7.2.686 Kael as [phone] [facility] 019 [place] 2020-01-21 2020-01-21 Telephone Nurse, [facility] 1.2.840.114 [id number] Univers 00:00:00 00:00:00 Fam Pob I Health 350.1.13.10 ity of [place] 4.2.7.2.686 [place]ael as Professio [phone] [address] Office [facility] 2019-05-27 2019-05-27 Patient [facility] 1.2.840.114 [id number] Univers 00:00:00 00:00:00 Outreach Barb D Health 350.1.13.10 ity of [place] 4.2.7.2.686 [place]ael as Professio [phone] [address] Office Building One Results Test Description Test Time Test Comments Results Result Comments Source Type and Screen - STAT 2022-12-15 18:19:52 Test Item Value Reference Range Interpretation Comme nts ABO & RH (test code = 20) O Positive Pe rformed at [facility] Laboratory Services - [facility] Blood [address] [place], [place] [address]Toll Free: [phone] A No. [id number] IAT (test code = 1185) Negative Perfo rmed at [facility] Laboratory Services - [facility] Blood [address] [place], [place] [address]Toll Free: [phone] A No. [id number] [facility] Screen - The Type and Screen expires at midnight on the 3rd day after it was drawn. A current Type and Screen is required when RBCs are requested. For all other blood products, a Type and Scree n performed during the current hospitalizati...2022-12-15 09:16:29 Test Item Value Reference Range Interpretation Comments ABO & RH (test code O Positive Performe d at [facility] = 20) Laboratory Serv [facility] Blood Bank2 [address] [place], [place] [address]Toll Free: [phone] 266CLIA No. [id number] IAT (test code = Negative Performed a t [facility] 1185) Laboratory Serv [facility] Blood Bank[address] [place], [place] [address]Toll Free: [phone] 266CLIA No. [id number] [facility] Metabolic Panel (NA, K, CL, CO2, GLUCOSE, BUN, CREATININE, CA)2022-12-15 09:11:55 Test Item Value Reference Range Interpretation Comments NA (test code = 146 mmol/L 135-145 H 6946142418) K (test code = 4.6 mmol/L 3.5-5.0 0353944607) CL (test code = 114 mmol/L 98-108 H 9492549962) CO2 TOTAL (test code = 26 mmol/L 23-31 8510931502) AGAP (test code = 6 2-16 4184670782) BUN (test code = 12 mg/dL 7-23 8893353314) GLUCOSE (test code = 104 mg/dL 70-110 5429642231) CREATININE (test code = 0.74 mg/dL 0.60-1.25 9868154381) CALCIUM (test code = 7.8 mg/dL 8.6-10.6 L 4820633363) eGFR (test code = 131.1 mL/min/1.73m2 6557930991) ISAURA (test code = ISAURA) Association of Glomerular Filtration Rate (GFR) and Staging of Kidney Disease* + --+ --+ ------+| GFR (mL/min/1.73 m2) ?| With Kidney Damage ?| ?Without Kidney Damage+ --------+ --------+ +| ?>90 ?| ?Stage one ?| ? Normal ?+ ---+ ---+ -------+| ?60-89 ?| ?Stage two ?| ? Decreased GFR ? + --+ --+ ------+| ?30-59 ?| ?Stage three ?| ? Stage three ? + --+ --+ ------+| ?15-29 ?| ?Stage four ? | ? Stage four ?+ ---+ ---+ -------+| ?<15 (or dialysis) ? ?| ?Stage five ? | ? Stage five ?+ ---+ ---+ -------+ *Each stage assumes the associated GFR level has been in effect for at least three months. ?Stages 1 to 5, with or without kidney disease, indicate chronic kidney disease. Notes: Determination of stages one and two (with eGFR >59mL/min/1.73 m2) requires estimation of kidney damage for at least three months as defined by structural or functional abnormalities of the kidney, manifested by either:Pathological abnormalities or Markers of kidney damage (including abnormalities in the composition of the blood or urine or abnormalities in imaging tests). Lab Interpretation Abnormal (test code = 38124-5) [facility] Lake[facility] Confirmation (Lab Only)2022-12-15 08:53:18 Test Item Value Reference Range Interpretation Comments ABO & RH (test code O Positive Performe d at [facility] = 20) Laboratory Serv [facility] Blood Bank[address] [place] [address] 4Toll Free: [phone] 266CLIA No. [id number] [facility] GLUCOSE (AUTOMATED)2022-12-15 05:01:22 Test Item Value Reference Range Interpretation Comments POCT GLU (test code = 8241731086) 102 mg/dL 70-110 Lab Interpretation (test code = Normal 64986-5) [facility] LakeSPUTUM CULTURE + GRAM [id number] 14:03:00 Test Item Value Reference Interpretation Comments Range CULTURE (BEAKER) STAPHYLOCOCCUS A 4+ Staphy lococcus (test code = 1095) AUREUS aureus Clindamycin (test R code = 10) Erythromycin (test R code = 4) Linezolid (test code S = 40) Nitrofurantoin (test S code = 23) Oxacillin (test code S = 14) Rifampin (test code = S 43) Tetracycline (test S code = 2) Trimethoprim + S Sulfamethoxazole (test code = 47) Vancomycin (test code S = 13) GRAM STAIN RESULT 1+ White blood (BEAKER) (test code = cells seen 1123) GRAM STAIN RESULT 0-5 epithelial (BEAKER) (test code = cells 961155) GRAM STAIN RESULT 3+ gram positive (BEAKER) (test code = cocci in chains 509084) and pairs 4+ Normal respiratory gabrielle presentPOCT-GLUCOSE [id number] 11:34:00 Test Item Value Reference Range Interpretation Comments POC-GLUCOSE METER 93 mg/dL 70-110 TESTED AT [place] [address] ([place]) (test code = [facility] [address] 1538) POCT-GLUCOSE [id number] 18:22:00 Test Item Value Reference Range Interpretation Comments POC-GLUCOSE METER 82 mg/dL 70-110 TESTED AT [place] [address] ([place]) (test code = [facility] [address] 1538) B-TYPE NATRIURETIC FACTOR (BNP)2019-05-13 13:29:00 Test Item Value Reference Range Interpretation Comments B-TYPE NATRIURETIC PEPTIDE (BEAKER) < pg/mL 0-100 (test code = 700) POCT-GLUCOSE [id number] 11:56:00 Test Item Value Reference Range Interpretation Comments POC-GLUCOSE METER 77 mg/dL 70-110 TESTED AT [place] [address] ([place]) (test code = [facility] [address] 1538) [id number] 11:55:00 Test Item Value Reference Range Interpretation Comments MAGNESIUM (BEAKER) 2.3 mg/dL 1.6-2.6 Specimen slightly (test code = 627) hemolyzed [id number] 11:55:00 Test Item Value Reference Range Interpretation Comments PHOSPHORUS (BEAKER) 3.8 mg/dL 2.3-4.7 Specimen slightly (test code = 604) hemolyzed COMPREHENSIVE METABOLIC [id number] 11:55:00 Test Item Value Reference Range Interpretation [...] Specimen slightly ictericCBC W/PLT COUNT & AUTO [id number] 11:38:00 Test Item Value Reference Range Interpretation [...] (BEAKER) (test code = 2801) CREATININE, RANDOM [id number] 10:00:00 Test Item Value Reference Range Interpretation Comments CREATININE URINE (BEAKER) (test 215.2 mg/dL code = 375) Reference Range: No NormalsCHLORIDE, RANDOM [id number] 09:57:00 Test Item Value Reference Range Interpretation Comments CHLORIDE URINE (BEAKER) (test code 126 meq/L = 682) Reference Range: No NormalsPROTEIN, RANDOM [id number] 09:57:00 Test Item Value Reference Range Interpretation Comments PROTEIN, URINE (BEAKER) (test code = 14 mg/dL 0-14 1569) SODIUM, RANDOM [id number] 09:57:00 Test Item Value Reference Range Interpretation Comments SODIUM URINE (BEAKER) (test code = 150 meq/L 243) Reference Range: No NormalsRAD, CHEST, 1 VIEW, NON [id number] 09:35:00Reason for exam:->hypoxemiaShould this be performed at the bedside?->YesFINAL REPORT Chest one view. Clinical history: hypoxemia Comparison: No priors Discussion: A frontal chest is provided. Cardiomediastinal contours are normal. ET is 5.5 cm above the annette. A feeding tube projects below the diaphragm. There is no consolidation, pulmonary edema, pneumothorax, or significant effusion. Osseous structures appear intact. Signed: Tammy Woodruff [facility] Verified Date/Time: 05/13/2019 09:35:14 Reading Location: [facility] Radiology Reading Room "
[2023-08-01 09:42] LABS: SARS-CoV-2 Antigen Rapid Res Negative (Negative)
--- NOTE | 2023-08-01 10:12 | EDPHYS ---
Physician Documentation [facility] Name: Saqib An Age: 23 yrs Sex: Male : 2000 Arrival Date: 08/01/2023 Time: 08:14 Bed 16 Private MD: ED Physician Regan Bonilla HPI: 08/01 08:45 This 23 yrs old Male presents to ER via Unassigned with complaints of Flu Symptoms. snw 08:45 The patient or guardian reports cough, flu symptoms, myalgias, sore throat. Onset: The snw symptoms/episode began/occurred suddenly, 2 day(s) ago, and became persistent. Associated signs and symptoms: Pertinent positives: rhinorrhea, fatigue, congestion, cough, sore throat. It is unknown whether or not the patient has had similar symptoms in the past. The patient has not recently seen a physician. late for work today 2nd to fatigue which is abnormal. Historical: - Allergies: 08:47 Amoxicillin; snw - Home Meds: 09:23 None [Active]; iw - PMHx: 09:23 None; iw - PSHx: 08:47 knee surgery; snw - Immunization history:: Client reports receiving the 2nd dose of the Covid vaccine. - Social history:: Smoking status: Reported history of juuling and/or vaping. Patient/guardian denies using alcohol, street drugs, The patient works. ROS: 08:48 Eyes: Negative for injury, pain, redness, and discharge, snw 08:48 Neck: Negative for injury, pain, and swelling, Cardiovascular: Negative for chest pain, palpitations, and edema, 08:48 Abdomen/GI: Negative for abdominal pain, nausea, vomiting, diarrhea, and constipation, Back: Negative for injury and pain, : Negative for injury, bleeding, discharge, and swelling, MS/Extremity: Negative for injury and deformity, Skin: Negative for injury, rash, and discoloration, Neuro: Negative for headache, weakness, numbness, tingling, and seizure, Psych: Negative for depression, anxiety, suicide ideation, homicidal ideation, and hallucinations, 08:48 Constitutional: Positive for body aches, fatigue, malaise, 08:48 ENT: Positive for rhinorrhea, sinus congestion, sinus pain, sore throat, 08:48 Respiratory: Positive for cough, with no reported sputum, Exam: 08:48 Head/Face: Normocephalic, atraumatic. Eyes: Pupils equal round and reactive to light, snw extra-ocular motions intact. Lids and lashes normal. Conjunctiva and sclera are non-icteric and not injected. Cornea within normal limits. Periorbital areas with no swelling, redness, or edema. 08:48 Neck: Trachea midline, no thyromegaly or masses palpated, and no cervical lymphadenopathy. Supple, full range of motion without nuchal rigidity, or vertebral point tenderness. No Meningismus. Chest/axilla: Normal chest wall appearance and motion. Nontender with no deformity. No lesions are appreciated. Cardiovascular: Regular rate and rhythm with a normal S1 and S2. No gallops, murmurs, or rubs. Normal PMI, no JVD. No pulse deficits. 08:48 Abdomen/GI: Soft, non-tender, with normal bowel sounds. No distension or tympany. No guarding or rebound. No evidence of tenderness throughout. Back: No spinal tenderness. No costovertebral tenderness. Full range of motion. Skin: Warm, dry with normal turgor. Normal color with no rashes, no lesions, and no evidence of cellulitis. MS/ Extremity: Pulses equal, no cyanosis. Neurovascular intact. Full, normal range of motion. Neuro: Awake and alert, GCS 15, oriented to person, place, time, and situation. Cranial nerves II-XII grossly intact. Motor strength 5/5 in all extremities. Sensory grossly intact. Cerebellar exam normal. Normal gait. Psych: Awake, alert, with orientation to person, place and time. Behavior, mood, and affect are within normal limits. 08:48 Constitutional: The patient appears alert, awake, 08:48 ENT: TM's: are normal, Nose: is normal, Mouth: Oral mucosa: normal, Posterior pharynx: erythema, that is moderate, Voice: is normal, 08:48 Respiratory: the patient does not display signs of respiratory distress, Breath sounds: are clear throughout, harsh cough, Vital Signs: 09:23 BP 138 / 83; Pulse 80; Resp 20; Temp 98.8; Pulse Ox 100% on R/A; Weight 85.73 kg; iw Height 5 ft. 7 in. ; 11:00 BP 128 / 79; Pulse 81; Resp 18; Pulse Ox 100% ; nj1 09:23 Body Mass Index 29.60 (85.73 kg, 170.18 cm) iw MDM: 08:19 Patient medically screened. snw 08:49 Differential diagnosis: bronchitis, flu, URI. Data reviewed: vital signs, nurses notes. snw 08/01 08:44 Order name: Strep snw 08/01 08:44 Order name: Flu; Complete Time: 09:49 snw 08/01 08:44 Order name: SARS RAPID; Complete Time: 09:49 snw 08/01 09:45 Order name: Throat Culture EDMS Administered Medications: No medications were administered Disposition: 09:07 I was immediately available on-site in the Emergency Department for consultation in the ms3 care of the patient. Disposition Summary: 08/01/23 10:11 Discharge Ordered Notes: Location: Home snw Condition: Stable snw Diagnosis - Acute bronchitis, unspecified snw Followup: snw - With: Emergency Department - When: As needed - Reason: Worsening of condition Followup: snw - With: Private Physician - When: 2 - 3 days - Reason: Recheck today's complaints, Continuance of care, Re-evaluation by your physician Discharge Instructions: - Discharge Summary Sheet snw - Acute Bronchitis, Adult snw - Rehydration, Adult snw Forms: - Work release form snw - Medication Reconciliation Form snw - Thank You Letter snw - Antibiotic Education snw - Prescription Opioid Use snw - Patient Portal Instructions snw - Leadership Thank You Letter snw Prescriptions: - Zyrtec 10 mg Oral Tablet - take 1 tablet ORAL route once daily As needed; 20 tablet; Refills: 0, Product snw Selection Permitted - Tessalon Perles 100 mg Oral Capsule - take 1 capsule ORAL route every 8 hours As needed; 15 capsule; Refills: 0, snw Product Selection Permitted - Pepcid 20 mg Oral Tablet - take 1 tablet ORAL route once daily; 20 tablet; Refills: 0, Product Selection snw Permitted Signatures: Dispatcher [employer] EDSvetlana Duran, [place] APPRAISER TIMBER-Csnw Magy Doss RN RN iw Regan Bonilla, DO ms3 Corrections: (The following items were deleted from the chart) 08:48 08:47 PMHx: Temporal lobe seizures; as a child; snw snw 09:23 08:47 Home Meds: Seroquel Oral [Inactive]; snw iw
--- NOTE | 2023-08-01 10:12 | ER ---
Nurse's Notes [facility] Name: Saqib An Age: 23 yrs Sex: Male : 2000 Arrival Date: 08/01/2023 Time: 08:14 Bed 16 Private MD: Diagnosis: Acute bronchitis, unspecified Presentation: 08/01 09:13 Chief complaint: Patient states: cough, congestion, sore throat X 2 days. Coronavirus iw screen: Client presents with at least one sign or symptom that may indicate coronavirus-19. Ebola Screen: Patient negative for fever greater than or equal to 101.5 degrees Fahrenheit, and additional compatible Ebola Virus Disease symptoms Patient denies exposure to infectious person. Patient denies travel to an Ebola-affected area in the 21 days before illness onset. No symptoms or risks identified at this time. Initial Sepsis Screen: Does the patient meet any 2 criteria? No. Patient's initial sepsis screen is negative. Does the patient have a suspected source of infection? No. Patient's initial sepsis screen is negative. Risk Assessment: Do you want to hurt yourself or someone else? Patient reports no desire to harm self or others. Onset of symptoms was August 01, 2023. 09:13 Method Of Arrival: Ambulatory iw 09:13 Acuity: [facility] 4 iw Historical: - Allergies: 08:47 Amoxicillin; snw - Home Meds: 09:23 None [Active]; iw - PMHx: 09:23 None; iw - PSHx: 08:47 knee surgery; snw - Immunization history:: Client reports receiving the 2nd dose of the Covid vaccine. - Social history:: Smoking status: Reported history of juuling and/or vaping. Patient/guardian denies using alcohol, street drugs, The patient works. Screenin:29 [facility] ED Fall Risk Assessment (Adult) Score/Fall Risk Level 0 - 2 = Low Risk nj1 Oriented to surroundings, Maintained a safe environment, Hourly rounding (assess needs \T\ fall precautionary measures) done. Abuse screen: Denies threats or abuse. Denies injuries from another. Nutritional screening: No deficits noted. Tuberculosis screening: No symptoms or risk factors identified. Assessment: 09:25 General: Appears in no apparent distress. comfortable, Behavior is calm, cooperative, nj1 appropriate for age. Pain: Complains of pain in Throat Pain currently is 5 out of 10 on a pain scale. Neuro: No deficits noted. GI: No deficits noted. Musculoskeletal: Denies body aches. 10:30 Reassessment: Patient appears in no apparent distress at this time. Patient and/or nj1 family updated on plan of care and expected duration. Pain level reassessed. Patient is alert, oriented x 3, equal unlabored respirations, skin warm/dry/pink. Vital Signs: 09:23 BP 138 / 83; Pulse 80; Resp 20; Temp 98.8; Pulse Ox 100% on R/A; Weight 85.73 kg; iw Height 5 ft. 7 in. ; 11:00 BP 128 / 79; Pulse 81; Resp 18; Pulse Ox 100% ; nj1 09:23 Body Mass Index 29.60 (85.73 kg, 170.18 cm) ED Course: 08:17 Patient arrived in ED. im 08:18 Regan Bonilla DO is Attending Physician. ms3 08:19 Svetlana Vargas FNP-C is [facility]. snw 09:01 Josephine Bingham, RN is Primary Nurse. nj1 09:13 SARS RAPID Sent. iw 09:13 Strep Sent. iw 09:13 Flu Sent. iw 09:14 Triage completed. iw 09:15 Arm band placed on. iw 09:29 No provider procedures requiring assistance completed. nj1 09:29 Patient has correct armband on for positive identification. Placed in gown. Bed in low nj1 position. Provided Education on: call light. 11:00 Patient did not have IV access during this emergency room visit. nj1 Administered Medications: No medications were administered Medication: 11:00 VIS not applicable for this client. nj1 Outcome: 10:11 Discharge ordered by . snchristian 11:00 Discharged to home ambulatory, nj1 11:00 Condition: stable 11:00 Discharge instructions given to patient, Instructed on discharge instructions, follow up and referral plans. medication usage, Demonstrated understanding of instructions, follow-up care, medications, Prescriptions given X 3, 11:12 Patient left the ED. nj1 Signatures: Svetlana Vargas FNP-C FNP-Magy Taylor RN RN Regan Bonilla DO DO ms3 Josephine Bingham RN RN nj1 Dori Anderson im Corrections: (The following items were deleted from the chart) 08:48 08:47 PMHx: Temporal lobe seizures; as a child; royce crane 09:23 08:47 Home Meds: Seroquel Oral [Inactive]; royce iw
[2023-08-01 11:16] VITALS: TEMP 98.8; O2SAT 100
[2023-08-01 11:17] VITALS: BP 128/79
== END 2023-08-01 11:12 | disposition home or self-care (01) ==
LOC: ER 08:14
DX: J20.9 Acute bronchitis, unspecified (principal); Z20.822 Contact with and (suspected) exposure to COVID-19; Z88.1 Allergy status to other antibiotic agents
CPT/HCPCS: 36415; 87070; 87081; 87804; 87811; 99283

== ENCOUNTER 2023-08-07 08:12 | Emergency (ER) | payer BC, OTHER ==
--- OUTSIDE RECORDS SUMMARY | 2023-08-07 08:16 | XMS REPORT | Continuity of Care Document ---
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 it was drawn. A current Type and Screen is required when RBCs are requested. For all other blood products, a Type and Scree n performed during the current hospitalizati...2022-12-15 09:16:29 Test Item Value Reference Range Interpretation Comments ABO & RH (test code O Positive Performe d at [facility] = 20) Laboratory Serv [facility] [employer] Blood Bank2 [address] [place] [id number] 4Toll Free: [phone] 266CLIA No. [id number] IAT (test code = Negative Performed a t [facility] 1185) Laboratory Serv [facility] Blood Bank2 [address] [place], [place] [address] 4Toll Free: [phone] 266CLIA No. [id number] [facility] Metabolic Panel (NA, K, CL, CO2, GLUCOSE, BUN, CREATININE, CA)2022-12-15 09:11:55 Test Item Value Reference Range Interpretation Comments NA (test code = 146 mmol/L 135-145 H 5443879649) K (test code = 4.6 mmol/L 3.5-5.0 6890731276) CL (test code = 114 mmol/L 98-108 H 8200673675) CO2 TOTAL (test code = 26 mmol/L 23-31 1499088720) AGAP (test code = 6 2-16 0974695934) BUN (test code = 12 mg/dL 7-23 0160571690) GLUCOSE (test code = 104 mg/dL 70-110 0902794425) CREATININE (test code = 0.74 mg/dL 0.60-1.25 7653007906) CALCIUM (test code = 7.8 mg/dL 8.6-10.6 L 2105419312) eGFR (test code = 131.1 mL/min/1.73m2 6331301130) ISAURA (test code = ISAURA) Association of [...] tests). Lab Interpretation Abnormal (test code = 58618-2) [facility] Confirmation (Lab Only)2022-12-15 08:53:18 Test Item Value Reference Range Interpretation Comments ABO & RH (test code O Positive Performe d at [facility] = 20) Laboratory Serv [facility] Blood Bank2 [address] [place] [address] 4Toll Free: [phone] 266CLIA No. [id number] [facility] GLUCOSE (AUTOMATED)2022-12-15 05:01:22 Test Item Value Reference Range Interpretation Comments POCT GLU (test code = 5913388996) 102 mg/dL 70-110 Lab Interpretation (test code = Normal 71771-8) [facility] + GRAM [id number] 14:03:00 Test Item Value Reference Interpretation Comments [...] 0-5 epithelial (BEAKER) (test code = cells 057445) GRAM STAIN RESULT 3+ gram positive (BEAKER) (test code = cocci in chains 500587) and pairs 4+ Normal respiratory gabrielle presentPOCT-GLUCOSE [id number] 11:34:00 Test Item Value Reference Range Interpretation Comments POC-GLUCOSE METER 93 mg/dL 70-110 TESTED AT [place] [address] ([facility]) (test code = [facility] [address] 1538) POCT-GLUCOSE [id number] 18:22:00 Test Item Value Reference Range Interpretation Comments POC-GLUCOSE METER 82 mg/dL 70-110 TESTED AT [place] [address] ([facility]) (test code = [facility] [address] 1538) B-TYPE NATRIURETIC FACTOR (BNP)2019-05-13 13:29:00 Test Item Value Reference Range Interpretation Comments B-TYPE NATRIURETIC PEPTIDE ([facility]) < pg/mL 0-100 (test code = 700) POCT-GLUCOSE [id number] 11:56:00 Test Item Value Reference Range Interpretation Comments POC-GLUCOSE METER 77 mg/dL 70-110 TESTED AT [place] [address] ([facility]) (test code = [facility] [address] 1538) [id number] 11:55:00 Test Item Value Reference Range Interpretation Comments PHOSPHORUS (AKER) 3.8 mg/dL 2.3-4.7 Specimen slightly (test code = 604) hemolyzed COMPREHENSIVE METABOLIC [id number] 11:55:00 Test Item Value Reference Range Interpretation Comments TOTAL PROTEIN 6.9 gm/dL 6.0-8.3 Specimen sligh tly ([facility]) (test code = hemoly zed 770) ALBUMIN (AKER) 4.2 g/dL 3.5-5.0 Specimen sl ightly (test code = 1145) hemolyzed ALKALINE PHOSPHATASE 58 U/L 40-150 ([facility]) (test code = 346) BILIRUBIN TOTAL 2.5 [...] APPLICABLE FOR DIALYSIS PATIEN TS. Specimen slightly [id number] 11:55:00 Test Item Value Reference Range Interpretation Comments MAGNESIUM (BEAKER) 2.3 mg/dL 1.6-2.6 Specimen slightly (test code = 627) hemolyzed CBC W/PLT COUNT & AUTO [id number] 11:38:00 Test Item Value Reference Range Interpretation [...] (BEAKER) (test code = 2801) CREATININE, RANDOM [id number] 10:00:00 Test Item Value Reference Range Interpretation Comments CREATININE URINE (BEAKER) (test 215.2 mg/dL code = 375) Reference Range: No NormalsCHLORIDE, RANDOM [id number] 09:57:00 Test Item Value Reference Range Interpretation Comments CHLORIDE URINE (BEAKER) (test code 126 meq/L = 682) Reference Range: No NormalsPROTEIN, RANDOM [id number] 09:57:00 Test Item Value Reference Range Interpretation Comments PROTEIN, URINE (BEAKER) (test code = 14 mg/dL 0-14 1569) SODIUM, RANDOM [id number] 09:57:00 Test Item Value Reference Range Interpretation Comments SODIUM URINE (BEAKER) (test code = 150 meq/L 243) Reference Range: No NormalsRAD, CHEST, 1 VIEW, NON [id number] 09:35:00Reason for exam:->hypoxemiaShould this be performed at the bedside?->YesFINAL REPORT Chest one view. Clinical history: hypoxemia Comparison: No priors Discussion: A frontal chest is provided. Cardiomediastinal contours are normal. ET is 5.5 cm above the annette. A feeding tube projects below the diaphragm. There is no consolidation, pulmonary edema, pneumothorax, or significant effusion. Osseous structures appear intact. Signed: Tammy Woodruff MDReport Verified Date/Time: 05/13/2019 09:35:14 Reading Location: [facility] Radiology Reading Room "
--- NOTE | 2023-08-07 08:25 | EDPHYS ---
Physician Documentation [facility] Name: Saqib An Age: 23 yrs Sex: Male : 2000 Arrival Date: 08/07/2023 Time: 08:12 Bed IW1 Private MD: ED Physician Emiliano Albright HPI: 08/07 08:22 This 23 yrs old Male presents to ER via Unassigned with complaints of Sore Throat. rn 08:22 The patient presents with sore throat. The patient describes throat pain as raw. Onset: rn The symptoms/episode began/occurred 1 week(s) ago. Severity of symptoms: At their worst the symptoms were mild, in the emergency department the symptoms are unchanged. Modifying factors: The symptoms are alleviated by nothing, the symptoms are aggravated by nothing. Associated signs and symptoms: Pertinent positives: cough. The patient has not experienced similar symptoms in the past. Patient seen here recently for upper respiratory infection and cough. Reports persistent sore throat. Not given antibiotics last time. Given a combination of Tessalon Perles/Pepcid/allergy medication. No trouble breathing or swallowing. No sick contacts at home.. Historical: - Allergies: 08:23 Amoxicillin; cm10 - Home Meds: 08:23 None [Active]; cm10 - PMHx: 08:23 None; cm10 - PSHx: 08:23 knee surgery; cm10 - Immunization history:: Adult Immunizations unknown. - Social history:: Smoking status: Reported history of juuling and/or vaping. - Family history:: not pertinent. - Hospitalizations: : No recent hospitalization is reported. ROS: 08:22 Constitutional: Negative for fever, chills, and weight loss, ENT: Positive for sore rn throat Respiratory: Positive for cough, negative for shortness of breath Exam: 08:22 Constitutional: This is a well developed, well nourished patient who is awake, alert, rn and in no acute distress. ENT: Mild pharyngeal erythema. No stridor Respiratory: No increased work of breathing, no retractions or nasal flaring. Vital Signs: 08:20 BP 128 / 73; Pulse 76; Resp 17; Temp 97.5; Pulse Ox 100% ; cm10 MDM: 08:17 Patient medically screened. rn 08:22 Differential diagnosis: gastroesophageal reflux disease, pharyngitis, upper respiratory rn infection, viral syndrome. Data reviewed: vital signs, nurses notes, and as a result, I will discharge patient. Counseling: I had a detailed discussion with the patient and/or guardian regarding the historical points, exam findings, and any diagnostic results supporting the discharge/admit diagnosis, the need for outpatient follow up, to return to the emergency department if symptoms worsen or persist or if there are any questions or concerns that arise at home. Special discussion: I discussed with the patient/guardian in detail that at this point there is no indication for admission to the hospital. It is understood, however, that if the symptoms persist or worsen the patient needs to return immediately for re-evaluation. 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 Day 2, 3, 4 , 5 take one (1) tablet once daily.; 6 tablet; Refills: 0, Product Selection Permitted Signatures: Emiliano Albright MD MD rn Martinez, Clarissa, RN RN cm10
--- NOTE | 2023-08-07 08:25 | ER ---
Nurse's Notes [facility] Name: Saqib An Age: 23 yrs Sex: Male : 2000 Arrival Date: 08/07/2023 Time: 08:12 Bed IW1 Private MD: Diagnosis: Acute pharyngitis, unspecified Presentation: 08/07 08:20 Chief complaint: Patient states: Recently treated for upper respiratory infection, cm10 reports continued symptoms. Coronavirus screen: At this time, the client does not indicate any symptoms associated with coronavirus-19. Ebola Screen: No symptoms or risks identified at this time. Initial Sepsis Screen: Does the patient meet any 2 criteria? No. Patient's initial sepsis screen is negative. Does the patient have a suspected source of infection? No. Patient's initial sepsis screen is negative. Risk Assessment: Do you want to hurt yourself or someone else? Patient reports no desire to harm self or others. Onset of symptoms is unknown. 08:20 Method Of Arrival: Ambulatory cm10 08:20 Acuity: SIERRA 4 cm10 Triage Assessment: 08:23 General: Appears in no apparent distress. uncomfortable, Behavior is calm, cooperative, cm10 appropriate for age. Pain: Denies pain. EENT: Throat is clear Reports sore throat. Historical: - Allergies: 08:23 Amoxicillin; cm10 - Home Meds: 08:23 None [Active]; cm10 - PMHx: 08:23 None; cm10 - PSHx: 08:23 knee surgery; cm10 - Immunization history:: Adult Immunizations unknown. - Social history:: Smoking status: Reported history of juuling and/or vaping. - Family history:: not pertinent. - Hospitalizations: : No recent hospitalization is reported. Vital Signs: 08:20 BP 128 / 73; Pulse 76; Resp 17; Temp 97.5; Pulse Ox 100% ; cm10 ED Course: 08:14 Patient arrived in ED. im 08:16 Emiliano Albright MD is Attending Physician. rn 08:22 Triage completed. cm10 08:23 Arm band placed on right wrist. cm10 08:35 Dewayne Bell RN is Primary Nurse. jl7 08:35 No provider procedures requiring assistance completed. Patient did not have IV access jl7 during this emergency room visit. Administered Medications: No medications were administered Outcome: :25 Discharge ordered by . zafar 08:35 Discharged to home ambulatory, [facility] 08:35 Condition: stable 08:35 Discharge instructions given to patient, Instructed on discharge instructions, follow up and referral plans. medication usage, Demonstrated understanding of instructions, follow-up care, medications, Prescriptions given X :45 Patient left the ED. jl7 Signatures: Emiliano Albright MD MD rn Leal, Jahala, RN RN jl7 Dori Anderson Clarissa, RN RN cm10
[2023-08-07 09:49] VITALS: BP 128/73; TEMP 97.5; O2SAT 100
== END 2023-08-07 09:45 | disposition home or self-care (01) ==
LOC: ER 08:12
DX: J02.9 Acute pharyngitis, unspecified (principal); Z88.1 Allergy status to other antibiotic agents
CPT/HCPCS: 99283